=== PATIENT | male | born 1955 | race Caucasian/White ===

== ENCOUNTER 2016-12-01 14:37 | Inpatient (IN) | payer SELFPAY ==
[2016-12-01] VITALS (9 sets, daily range): BP systolic 101–108; BP diastolic 62–72; PULSE 97–112; RESP 20–24; TEMP 97.8–98.2; O2SAT 90–98
[~2016-12-01] VITALS: Ht 182.9 cm; Wt 71.0 kg
[~2016-12-01 14:37] MED LIST: QUET100 PO; VENL-39 PO; VITA500T49 PO
[2016-12-01] MEDS ORDERED: SERO100T PO (15:21)
[2016-12-01] MEDS ORDERED: VENL75TA PO (15:22)
--- NOTE | 2016-12-01 15:29 | PD ---
HPI Chief Complaint: Respiratory Symptoms Time Seen by Provider: 15:29 Travel History International Travel<30 days: No Contact w/Intl Traveler<30days: No Traveled to known affect area: No History of Present Illness HPI 61-year-old male with history of COPD presents to the emergency department for worsening shortness of breath over the last 2 weeks. Patient states it has been significantly worse over the last 3 days. He has had cough and chest congestion with some production more than usual but states that his cough is typically productive. Continues to smoke half a pack of tobacco cigarettes daily. Denies chest pain. States there is a tightness with taking deep breaths. Patient denies fever or chills. No recent illnesses. No other symptoms to report. Patient is not oxygen dependent at home. PFSH Past Medical History Anxiety: Yes Depression: Yes Heart Rhythm Problems: No Cancer: Yes (skin cancer) Cardiovascular Problems: Yes (Chest Pain) High Cholesterol: No Chest Pain: Yes Congestive Heart Failure: No COPD: Yes Endocrine: No Genitourinary: No Immune Disorder: No Musculoskeletal: Yes (back pain) Neurologic: No Psychiatric: Yes Reproductive: No Respiratory: Yes Social History Alcohol Use: Yes (DAILY) Tobacco Use: Yes (/ PPD) Substance Use: No Allergies-Medications (Allergen,Severity, Reaction): Coded Allergies: No Known Allergies (Unverified , 12/01/16) Reported Meds & Prescriptions Reported Meds & Active Scripts Active Reported Effexor (Venlafaxine HCl) 75 Mg Tab 150 Mg PO DAILY Seroquel (Quetiapine Fumarate) 100 Mg Tab 100 Mg PO HS Review of Systems Except as stated in HPI: all other systems reviewed are Neg Physical Exam Narrative GENERAL: Thin male patient, lying in bed, in no acute distress SKIN: Warm and dry. HEAD: Atraumatic. Normocephalic. EYES: Pupils equal and round. No scleral icterus. No injection or drainage. ENT: No nasal bleeding or discharge. Mucous membranes pink and moist. NECK: Trachea midline. No JVD. CARDIOVASCULAR: Tachycardic rate and rhythm. No murmur appreciated. RESPIRATORY: No accessory muscle use. Diminished, to auscultation. Breath sounds equal bilaterally. GASTROINTESTINAL: Abdomen soft, non-tender, nondistended. Hepatic and splenic margins not palpable. MUSCULOSKELETAL: No obvious deformities. No clubbing. No cyanosis. No edema. NEUROLOGICAL: Awake and alert. No obvious cranial nerve deficits. Motor grossly within normal limits. Normal speech. PSYCHIATRIC: Appropriate mood and affect; insight and judgment normal. Data Data Last Documented VS Vital Signs Date Time Temp Pulse Resp B/P Pulse Ox O2 Delivery O2 Flow Rate FiO2 12/01/16 16:24 102 20 104/72 97 Nasal Cannula 4.00 12/01/16 15:20 98.2 Orders Complete Blood Count With Diff (12/01/16 15:34) Comprehensive Metabolic Panel (12/01/16 15:34) B-Type Natriuretic Peptide (12/01/16 15:34) Act Partial Throm Time (Ptt) (12/01/16 15:34) Prothrombin Time / Inr (Pt) (12/01/16 15:34) Ckmb (Isoenzyme) Profile (12/01/16 15:34) Troponin I (12/01/16 15:34) Urinalysis - C+S If Indicated (12/01/16 15:34) Influenzae A/B Antigen (12/01/16 15:34) Iv Access Insert/Monitor (12/01/16 15:34) Electrocardiogram (12/01/16 15:34) Ecg Monitoring (12/01/16 15:34) Oximetry (12/01/16 15:34) Oxygen Administration (12/01/16 15:34) Chest, Single Ap (12/01/16 15:34) Sodium Chloride 0.9% Flush (Ns Flush) (12/01/16 15:45) Methylprednisolone So Succ Inj (Solumedr (12/01/16 15:45) Albuterol-Ipratropium Neb (Duoneb Neb) (12/01/16 15:45) Sodium Chlor 0.9% 1000 Ml Inj (Ns 1000 M (12/01/16 16:45) Ceftriaxone Inj (Rocephin Inj) (12/01/16 16:45) Azithromycin Inj (Zithromax Inj) (12/01/16 16:45) Labs Laboratory Tests Test 12/01/16 15:45 White Blood Count 15.0 TH/MM3 Red Blood Count 4.18 MIL/MM3 Hemoglobin 12.2 GM/DL Hematocrit 37.6 % Mean Corpuscular Volume 89.8 FL Mean Corpuscular Hemoglobin 29.1 PG Mean Corpuscular Hemoglobin 32.4 % Concent Red Cell Distribution Width 15.2 % Platelet Count 294 TH/MM3 Mean Platelet Volume 7.5 FL Neutrophils (%) (Auto) 87.0 % Lymphocytes (%) (Auto) 9.1 % Monocytes (%) (Auto) 3.4 % Eosinophils (%) (Auto) 0.3 % Basophils (%) (Auto) 0.2 % Neutrophils # (Auto) 13.1 TH/MM3 Lymphocytes # (Auto) 1.4 TH/MM3 Monocytes # (Auto) 0.5 TH/MM3 Eosinophils # (Auto) 0.0 TH/MM3 Basophils # (Auto) 0.0 TH/MM3 CBC Comment DIFF FINAL Differential Comment Prothrombin Time 11.2 SEC Prothromb Time International 1.0 RATIO Ratio Activated Partial 29.9 SEC Thromboplast Time Sodium Level 135 MEQ/L Potassium Level 3.5 MEQ/L Chloride Level 103 MEQ/L Carbon Dioxide Level 22.1 MEQ/L Anion Gap 10 MEQ/L Blood Urea Nitrogen 19 MG/DL Creatinine 1.41 MG/DL Estimat Glomerular Filtration 51 ML/MIN Rate Random Glucose 132 MG/DL Calcium Level 8.4 MG/DL Total Bilirubin 0.5 MG/DL Aspartate Amino Transf 33 U/L (AST/SGOT) Alanine Aminotransferase 49 U/L (ALT/SGPT) Alkaline Phosphatase 90 U/L Total Creatine Kinase 56 U/L Troponin I 0.07 NG/ML B-Type Natriuretic Peptide 175 PG/ML Total Protein 6.6 GM/DL Albumin 2.4 GM/DL MDM Medical Decision Making Medical Screen Exam Complete: Yes Emergency Medical Condition: Yes Medical Record Reviewed: Yes Differential Diagnosis COPD exacerbation versus pneumonia versus influenza versus ACS versus CHF Narrative Course 61-year-old male presents to emergency department for evaluation of worsening shortness of breath. Patient appears without distress. He is tachycardic with diminished breath sounds. EKG is without ST elevation or depression. There are frequent PVCs. Reviewed by my attending physician. CBC is with leukocytosis of 15 and a neutrophilia of 13.1. CMP is with elevated creatinine 1.49, breathing 18, GFR 51. Troponin 0.07. BNP is 175. Chest x-ray is with hyperinflation. There is minimal patchy airspace disease in the mid left lung. I discussed the patient my attending physician Dr. Anne who recommends admission for pneumonia, COPD exacerbation. Patient does meet sepsis criteria. He is given IV fluids, Rocephin, azithromycin IV here in the emergency department. Patient was also given 2 nebs 3 and Solu-Medrol IV. A call has been placed to resident physician radioisotope production operator for admission. Sepsis Criteria SIRS Criteria (2 or more): Heart rate over 90, WBC > 54497, < 4000 or > 10% bands Sepsis Criteria (SIRS+source): Infect source susp/known Diagnosis Primary Impression: Pneumonia Qualified Code: J18.1 - Pneumonia of left lower lobe due to infectious organism Additional Impressions: COPD exacerbation Sepsis Qualified Code: A41.9 - Sepsis, due to unspecified organism Admitting Information Admitting Physician Requests: Admit Condition: Stable AiramKerrie PUENTES Dec 01, 2016 15:29
[2016-12-01] MEDS ORDERED: methylPREDNISolone SOD SUCC 125 MG/2 ML VIAL IVP ONE (15:45)
[2016-12-01] MEDS ORDERED: SODIUM CHLORIDE 0.9% FLUSH 10 ML FLUSH IVF PRN (15:45)
[2016-12-01] MEDS: RESP: ALBUTEROL 2.5 MG/IPRATROPIUM 0.5 MG NEB (SCH) INH ×3 (15:56→20:13)
[2016-12-01 16:13] LABS: AUTOMATED NEUTROPHIL # 13.1 TH/MM3 (1.8-7.7); BASOPHIL % 0.2 % (0.0-2.0); EOSINOPHIL % 0.3 % (0.0-4.0); HEMATOCRIT 37.6 % (39.0-51.0); HEMO FLAGS DIFF FINAL; LYMPH % 9.1 % (9.0-44.0); LYMPHOCYTE # 1.4 TH/MM3 (1.0-4.8); MEAN CELL VOLUME 89.8 FL (80.0-100.0); MEAN CORPUSCULAR HEMOGLOBIN 29.1 PG (27.0-34.0); MEAN CORPUSCULAR HGB CONC 32.4 % (32.0-36.0); MONO % 3.4 % (0.0-8.0); PLATELET COUNT 294 TH/MM3 (150-450); RED BLOOD COUNT 4.18 MIL/MM3 (4.50-5.90); RED CELL DISTRIBUTION WIDTH 15.2 % (11.6-17.2)
[2016-12-01 16:25] LABS: APTT (PATIENT) 29.9 SEC (24.3-30.1); PROTHROMBIN TIME - PATIENT 11.2 SEC (9.8-11.6)
--- NOTE | 2016-12-01 16:26 | RADRPT ---
EXAM DATE/TIME: 12/01/2016 15:51 [facility] COMPARISON: CHEST SINGLE AP, May 05, 2016, 16:58. INDICATIONS : Short of breath. MEDICAL HISTORY : Chronic obstructive pulmonary disease. SURGICAL HISTORY : None. ENCOUNTER: Initial ACUITY: 1 day PAIN SCORE: 7/10 LOCATION: Bilateral chest FINDINGS: Lungs are hyperinflated. Patchy air space disease is seen in the left mid lung. The right lung is c lear. Heart and pulmonary vascularity is normal. CONCLUSION: 1. Hyperinflation. 2. Minimal patchy air space disease in the left mid lung. Angel Gomez MD FACR on December 01, 2016 at 16:23 Board Certified Radiologist. This report was verified electronically.
[2016-12-01 16:31] LABS: ALT (GPT) 49 U/L (12-78); ANION GAP 10 MEQ/L (5-15); AST (GOT) 33 U/L (15-37); BICARBONATE 22.1 MEQ/L (21.0-32.0); BLOOD UREA NITROGEN 19 MG/DL (7-18); CHLORIDE 103 MEQ/L (98-107); GLOMERULAR FILTRATION RATE 51 ML/MIN (>89); POTASSIUM 3.5 MEQ/L (3.5-5.1); SODIUM (NA) 135 MEQ/L (136-145)
[2016-12-01 16:35] LABS: ALKALINE PHOSPHATASE 90 U/L (45-117); TOTAL BILIRUBIN ADULT 0.5 MG/DL (0.2-1.0)
[2016-12-01 16:37] LABS: CREATINE KINASE 56 U/L (39-308)
[2016-12-01] MEDS ORDERED: AZITHROMYCIN INJ 500 MG in SODIUM CHLOR 0.9% 250 ML INJ 250 ML IV ONE (16:45)
[2016-12-01] MEDS ORDERED: cefTRIAXone INJ 1,000 MG in SODIUM CHLORIDE 0.9% INJ 100 ML IV ONE (16:45)
[2016-12-01] MEDS ORDERED: SODIUM CHLOR 0.9% 1000 ML INJ 1,000 ML IV ONE (16:45)
--- NOTE | 2016-12-01 17:39 | HHI.HP ---
HPI Service Family Medicine Primary Care Physician No Primary Care Physician Admission Diagnosis Diagnoses: International Travel<30 Days: No Contact w/Intl Traveler<30days: No Known Affected Area: No History of Present Illness HPI: "I couldn't catch my breath" HPI: SOB started 1-2 weeks ago and reports being on and off. Today he went to walk his dog, walked a couple of block and then had difficulty catching his breath. He felt like he "could not suck up any oxygen". After 5 minutes of rest his SOB improved. At home he is not doing anything for his symptoms. He reports a hx of COPD. SOB was worse over past 4 days. He denies a new cough. He reports chest pain when he takes a deep breath at the center of his chest. No URI symptoms. ROS: Pain in lower back, flank Right side. "Warm feeling" in his back. PMHx: blood clots (Dong Torres MD R2) Review of Systems Constitutional: COMPLAINS OF: Fever, Change in appetite, DENIES: Chills Eyes: COMPLAINS OF: Blurred vision, Photosensitivity, DENIES: Diplopia Ears, nose, mouth, throat: DENIES: Tinnitus, Throat pain, Running Nose, Epistaxis Cardiovascular: COMPLAINS OF: Dyspnea on Exertion, DENIES: Chest pain, Lower Extremity Edema, Orthopnea Gastrointestinal: COMPLAINS OF: Abdominal pain, Diarrhea, DENIES: Nausea, Vomiting Musculoskeletal: COMPLAINS OF: Back pain Neurologic: COMPLAINS OF: Headache (Dong Torres MD R2) Past Family Social History Past Medical History PE in 2013 Anxiety / Panic Disorder Denies OR CVA DM SEIZURE C diff Past Surgical History Never (Dong Torres MD R2) Allergies: Coded Allergies: No Known Allergies (Unverified , 12/01/16) Family History Mother - healthy Father - 80 y/o heart defibrillator, CAD, knee replacements BL Siblings - 2 brothers: healthy, 1 sister - healthy Social History Tob - since 19 y/o - 1/2 ppd, previously 1 PPD EtOH - remote IVDU - denies [employer] [place] - lost job, [facility] (Dong Torres MD R2) Physical Exam Vital Signs Vital Signs Date Time Temp Pulse Resp B/P Pulse Ox O2 Delivery O2 Flow Rate FiO2 12/01/16 16:24 102 20 104/72 97 Nasal Cannula 4.00 12/01/16 15:55 92 Nasal Cannula 4.00 12/01/16 15:25 24 92 Nasal Cannula 3 12/01/16 15:25 112 24 91 Nasal Cannula 3 12/01/16 15:25 92 Nasal Cannula 3 12/01/16 15:20 98.2 112 24 106/70 90 Physical Exam GENERAL: Breathing comfortably. NAD SKIN: No rashes, ecchymoses or lesions. Cool and dry. HEAD: Atraumatic. EYES: Pupils equal round and reactive. ENT: Nose without bleeding, purulent drainage or septal hematoma. No LA, hyperpigmented macule on left bridge of nose. NECK: Trachea midline. No JVD or lymphadenopathy. CARDIOVASCULAR: Regular rate and rhythm without murmurs, gallops, or rubs.Faint heart Sounds. RESPIRATORY: Crackles at right lung base, exp. wheezes throughout, good aeration. GASTROINTESTINAL: Abdomen soft, non-tender, nondistended. MUSCULOSKELETAL: NEGATIVE HOMANS SIGN. NEUROLOGICAL: Awake and alert. Cranial nerves II through XII intact. Motor and sensory grossly within normal limits. Five out of 5 muscle strength in all muscle groups. Normal speech. Laboratory Laboratory Tests Test 12/01/16 15:45 White Blood Count 15.0 Red Blood Count 4.18 Hemoglobin 12.2 Hematocrit 37.6 Mean Corpuscular Volume 89.8 Mean Corpuscular Hemoglobin 29.1 Mean Corpuscular Hemoglobin 32.4 Concent Red Cell Distribution Width 15.2 Platelet Count 294 Mean Platelet Volume 7.5 Neutrophils (%) (Auto) 87.0 Lymphocytes (%) (Auto) 9.1 Monocytes (%) (Auto) 3.4 Eosinophils (%) (Auto) 0.3 Basophils (%) (Auto) 0.2 Neutrophils # (Auto) 13.1 Lymphocytes # (Auto) 1.4 Monocytes # (Auto) 0.5 Eosinophils # (Auto) 0.0 Basophils # (Auto) 0.0 CBC Comment DIFF FINAL Differential Comment Prothrombin Time 11.2 Prothromb Time International 1.0 Ratio Activated Partial 29.9 Thromboplast Time Sodium Level 135 Potassium Level 3.5 Chloride Level 103 Carbon Dioxide Level 22.1 Anion Gap 10 Blood Urea Nitrogen 19 Creatinine 1.41 Estimat Glomerular Filtration 51 Rate Random Glucose 132 Calcium Level 8.4 Total Bilirubin 0.5 Aspartate Amino Transf 33 (AST/SGOT) Alanine Aminotransferase 49 (ALT/SGPT) Alkaline Phosphatase 90 Total Creatine Kinase 56 Troponin I 0.07 B-Type Natriuretic Peptide 175 Total Protein 6.6 Albumin 2.4 Date/Time Procedure Status Source Growth 12/01/16 15:45 Influenza Types A,B Antigen (LISS) - Final Complete Nasal Washing NEGATIVE FOR FLU A AND B ANTIGEN.... (Dong Torres MD R2) Result Diagram: 12/01/16 1545 12/01/16 1545 Imaging Last 72 hours Impressions Chest X-Ray 12/01/16 1534 Signed Impressions: Service Date/Time: Tuesday, December 01, 2016 15:51 - CONCLUSION: 1. Hyperinflation. 2. Minimal patchy air space disease in the left mid lung. Angel Gomez MD FACR (Dong Torres MD R2) Septic Shock Reassessment Heart: Regular rate and rhythm Lungs: Course, Crackles Skin: Warm Peripheral Pulses: Weak Right Radial Weak Left Radial Capillary Refill: <2 seconds (Dong Torres MD R2) Assessment and Plan Assessment and Plan Mr. Daniel is a 61 y/o occasion male with a past medical history of pulmonary embolism in 2013, anxiety/depression, presenting to the [place] emergency department with acute onset shortness of breath. (HR 112, WBC 15,000, and RR 24 ); meeting sepsis criteria. He was admitted initially with the diagnosis of acute exacerbation of chronic obstructive pulmonary disease, versus a community- acquired pneumonia. Code Status Full Code. (Dong Torrse MD R2) Attending Attestation THIS CASE WAS DISCUSSED WITH THE RESIDENT PHYSICIANS. I HAVE REVIEWED THE RECORD AND AGREE WITH THE ABOVE NOTE AND PLAN OF CARE WAS DISCUSSED. I HAVE AUTHORIZED THE ORDER FOR ADMISSION TO AN IN-PATIENT STATUS. (Mahesh Johnson MD) Problem List: (1) Chest pain Status: Acute Plan: Likely related to CAP, vs COPD vs PE (given pleuritic nature of chest pain and heart strain as evidence by elevated troponin and BNP). -Duonebs q 4 hours -Duonebs q 2 hr prn SOB -Ceftriaxone and Azithromycin for CAP (12/01/16 --) -Methylprednisolone 40 mg IV q 12 -Incentive spirometry, COPD education -Trend TROP and EKGs; EKG showed no S1,Q3, S3 pattern on addmision: Sinus tachycardia with borderline right axis deviation. Trop = 0.07 H -Check a D-dimer, Wells criteria PE prob 16.5% (2) Pneumonia Status: Acute Plan: CXR showed: hyperinflation, Minimal patchy airspace disease in left lung. Treat with Ceftriaxone and Azithromycin as above Check Lactic Acid IVF with 125 ml/hr NS Monitor CBC in AM Steroids as above (3) COPD exacerbation Status: Acute Plan: Some wheezing on exam, heavy Tob history of 1/2 - 1 ppd since age 19. -Steroids as above -Breathing tx as above -ABX as above -Incentive spirometry -Guaifen-DM 10 ml q 4 hr PRN cough -Smoking cessation counseling -COPD educator -Continuous pulse ox w/ supp O2 > 90% (4) Sepsis Status: Acute Plan: Meeting sepsis criteria on exam: Leukocytosis of 15k, tachycardia to 112 , and RR of 24 with source of infection being pulmonary. -Lactic acid -ABX at targeted organisms (lower resp pathogens) -Blood cultures x 2 -U/A +/- culture (5) Major depressive disorder, recurrent, severe with psychotic features Status: Acute Plan: Continue home meds - Effexor 75 mg daily and seroquel 100 mg at bedtime. (6) Alcohol use disorder Status: Acute Plan: [facility] protocol IV rally pack (thiamine/B1, mv) (7) FEN Status: Acute Plan: Fluids: 125 ml/hr ns Electrolytes: Sodium low of 135, Ca+ 8.4 DVT: Lovenox [address] Johnson (Dong Torres MD R2) Physician Certification 2 Midnight Certification Type: Admission for Inpatient Services Order for Inpatient Services The services are ordered in accordance with Medicare regulations or non- Medicare payer requirements, as applicable. In the case of services not specified as inpatient-only, they are appropriately provided as inpatient services in accordance with the 2-midnight benchmark. Estimated LOS (days): 2 2 days is the estimated time the patient will need to remain in the hospital, assuming treatment plan goals are met and no additional complications. Post-Hospital Plan: Home (Dong Torres MD R2) Problem Qualifiers (1) Pneumonia: Qualified Code: J18.1 - Pneumonia of left lower lobe due to infectious organism (2) Sepsis: Qualified Code: A41.9 - Sepsis, due to unspecified organism Dong Torres MD R2 Dec 01, 2016 17:39 Mahesh Johnson MD Dec 02, 2016 11:53
[2016-12-01] MEDS ORDERED: RESP: ALBUTEROL 2.5 MG/IPRATROPIUM 0.5 MG NEB (PRN) INH (18:00)
[2016-12-01] MEDS ORDERED: ONDANSETRON HCL 4 MG/2 ML VIAL IVP PRN (18:00)
[2016-12-01] MEDS ORDERED: NALOXONE HCL 0.4 MG/ML AMP IV PRN (18:00)
[2016-12-01] MEDS ORDERED: guaiFENesin/DEXTROMETHORPHAN 200 MG/20 MG/10 ML CUP PO PRN (18:00)
[2016-12-01] MEDS ORDERED: TEMAZEPAM 15 MG CAP PO PRN (18:00)
[2016-12-01] MEDS ORDERED: SODIUM CHLORIDE 0.9% FLUSH 10 ML FLUSH IV FLUSH PRN (18:00)
[2016-12-01] MEDS: SODIUM CHLOR 0.9% 1000 ML INJ 1,000 ML IV SCH (18:34)
[2016-12-01] MEDS ORDERED: ENOXAPARIN SODIUM 30 MG/0.3 ML SYRINGE SQ SCH (20:00)
[2016-12-01] MEDS ORDERED: VANCOMYCIN INJ 1,000 MG in SODIUM CHLOR 0.9% 250 ML INJ 250 ML IV SCH (20:15)
[2016-12-01] MEDS ORDERED: Vancomycin Consult Pharmacy 1 EA OTHER SCH (20:15)
[2016-12-01] MEDS: QUEtiapine FUMARATE 100 MG TAB PO SCH (20:21)
[2016-12-01] MEDS: methylPREDNISolone SOD SUCC 40 MG/1 ML VIAL IV SCH (20:21)
[2016-12-01] MEDS: PIPERACIL-TAZO 3.375 GM PREMIX 50 ML IV SCH (20:26)
[2016-12-01] MEDS ORDERED: IOHEXOL 350 MG/ML 10 ML VIAL (for RAD DIAG) IV ONE (21:02)
--- NOTE | 2016-12-01 21:15 | RADRPT ---
EXAM DATE/TIME: 12/01/2016 20:53 [facility] COMPARISON: CT PULMONARY ANGIOGRAM, May 05, 2016, 18:27. INDICATIONS : Chest pain with shortness of breath for 2 days; evaluate for pulmonary embolism. IV CONTRAST: 74 cc Omnipaque 350 (iohexol) IV RADIATION DOSE: 9.30 CTDIvol (mGy) MEDICAL HISTORY : Cardiovascular disease. Carcinoma, not otherwise specified. Tuberculosis; Pneumonia. SURGICAL HISTORY : None. ENCOUNTER: Initial ACUITY: 2 days PAIN SCALE: 3/10 LOCATION: chest TECHNIQUE: Volumetric scanning of the chest was performed using a pulmonary embolism protocol MIP images were re constructed. Using automated exposure control and adjustment of the mA and/or kV according to patien t size, radiation dose was kept as low as reasonably achievable to obtain optimal diagnostic quality images. FINDINGS: Extensive pulmonary emboli are noted bilaterally involving all branches of the pulmonary arteries. Th ere are saddle emboli bilaterally within the distal main pulmonary arteries. Moderate emphysematous c hanges are noted bilaterally. Patchy consolidations are noted within the left upper lobe laterally an d the right lower lobe posteriorly consistent with atelectasis, infiltrate, scarring or small pulmona ry infarcts. No significant lymphadenopathy is noted. No pleural effusion is noted. CONCLUSION: 1. Extensive pulmonary emboli are noted bilaterally involving all branches of the pulmonary arteries. There are saddle emboli bilaterally within the distal main pulmonary arteries. 2. Moderate emphysematous changes bilaterally. 3. Patchy consolidations are noted within the left upper lobe laterally and the right lower lobe post eriorly consistent with atelectasis, infiltrate, scarring or small pulmonary infarcts. Philip Edgar MD on December 01, 2016 at 21:09 Board Certified Radiologist. This report was verified electronically.
[2016-12-01 21:22] LABS: LACTIC ACID GHOST NOT REPORTABLE
[2016-12-01] MEDS ORDERED: VANCOMYCIN INJ 1,350 MG in SODIUM CHLORID 0.9% 500 ML INJ 500 ML IV ONE (22:00)
[2016-12-01] MEDS ORDERED: HEPARIN-D5W INJ 250 ML IV SCH (22:15)
[2016-12-02] VITALS (15 sets, daily range): BP systolic 96–114; BP diastolic 62–67; PULSE 67–98; RESP 16–27; TEMP 97.8–98.9; O2SAT 91–99
[2016-12-02] MEDS ORDERED: TERBUTALINE INJ 1 MG/ML AMP SQ PRN (00:30)
[2016-12-02] MEDS ORDERED: NOREPINEPHRINE-DEXTROSE DRIP 250 ML IV SCH (00:30)
[2016-12-02 00:45] LABS: BLOOD, URINE SMALL (NEG); COMMENT (UR) CULT NOT INDICATED; CULTURE IF INDICATED CULT NOT INDICATED; GLUCOSE,URINE 1000 mg/dL (NEG); KETONE, URINE 10 mg/dL (NEG); MUCUS URINE FEW /lpf (OCC); NITRITE,URINE NEG (NEG); URINE COLOR YELLOW (YELLW/STRAW)
[2016-12-02] MEDS: SODIUM CHLOR 0.9% 1000 ML INJ 1,000 ML IV SCH (02:18)
[2016-12-02] MEDS: PIPERACIL-TAZO 3.375 GM PREMIX 50 ML IV SCH ×4 (02:56→19:41)
[2016-12-02] MEDS ORDERED: HEPARIN SODIUM - IV 10,000 UNITS/10 ML VIAL IV PRN ×2 (04:15)
[2016-12-02] MEDS ORDERED: ALTEPLASE INJ 50 MG in WATER STERILE FOR INJ 100 ML IV ONE (05:15)
--- NOTE | 2016-12-02 05:25 | PD.CONS ---
[facility] Service Critical Care Medicine Consult Requested By Primary Care Physician No Primary Care Physician History of Present Illness 61-year-old male with past history of COPD and emphysema, and history of what appears to be in unprovoked PE in 2013. He states that about 2 weeks ago he began feeling short of breath but he became much worse about 4 days ago. He also developed some right sided pleuritic chest pain about 4-5 days ago. He denies fever or hemoptysis. He was tachycardic 110s and hypoxic requiring 4 L NC. He was admitted to [facility] medicine service. CTPA was obtained and demonstrated bilateral pulmonary emboli including emboli in the distal bilateral main pulmonary arteries. Medical care medicine consult was obtained due to concern patient may be a candidate for fibrinolytic therapy. He does have troponin of 0.07 and BNP of 175. Blood pressure has been relatively stable with a major of 96/65. He states his cough is occasionally productive of white phlegm. He states he has a prior history of PE that was diagnosed 2 years ago. He was treated for this at [facility]. It is unclear if he underwent hypercoagulable workup as he says he did not follow-up with anyone after he was discharged from the hospital due to lack of insurance. He states he was on anticoagulation for about 2 months and when the prescriptions ran out that he was provided in the hospital that he stopped anticoagulation. He is unclear what anticoagulant medication he was on. He denies prior known history of malignancy, however he does not seek medical care due to his lack of insurance. Has not had colonoscopy. He denies recent travel. Denies family history of venous thromboembolic disease. Denies recent trauma, surgery, extremity fractures. He denies history of significant bleeding, denies GI bleeding, denies prior history of intracerebral hemorrhage or known intracerebral/spinal mass lesion or vascular anomaly, prior surgery, prior stroke, LP/epidural. Obtained stat Echo and discussed with Dr. Chino Marie who states there is severe RV dysfunction. Discussed risk/benefits of thrombolytic for submassive PE and patient accepts risks. Past Family Social History Allergies: Coded Allergies: No Known Allergies (Unverified , 12/01/16) Past Medical History Insomnia Panic attacks Tobacco abuse Pulmonary embolism about 2 years ago Past Surgical History No prior surgical history. Never had a colonoscopy Reported Medications Seroquel 100 g by mouth daily Effexor 150 mg by mouth daily Family History He denies family history of veno thromboembolic disease He says he had 2 grandparents that had lung cancer, one paternal and one maternal. Social History He smokes a half pack of cigarettes per day since he was age 14. Denies use of alcohol or illicit drugs He is currently unemployed for the last 2 years as he states he lost his job Physical Exam Vital Signs Vital Signs Date Time Temp Pulse Resp B/P Pulse Ox O2 Delivery O2 Flow Rate FiO2 12/02/16 04:00 98.5 76 20 114/63 92 96/65 12/02/16 04:00 76 12/02/16 02:00 77 12/02/16 00:30 95 12/02/16 00:30 91 Nasal Cannula 4.00 12/02/16 00:30 98.3 98 19 114/63 91 12/01/16 21:20 97.8 97 20 101/62 91 12/01/16 20:26 102 20 101/65 98 Nasal Cannula 4 12/01/16 20:15 94 Nasal Cannula 2.00 12/01/16 19:59 102 20 108/69 95 Nasal Cannula 4.00 12/01/16 17:54 98.0 98 20 105/66 98 Nasal Cannula 4.00 12/01/16 16:24 102 20 104/72 97 Nasal Cannula 4.00 12/01/16 15:55 92 Nasal Cannula 4.00 12/01/16 15:25 24 92 Nasal Cannula 3 12/01/16 15:25 112 24 91 Nasal Cannula 3 12/01/16 15:25 92 Nasal Cannula 3 12/01/16 15:20 98.2 112 24 106/70 90 Physical Exam Pulse 72 sats 90% on 3 L blood pressure 96/65 with mean arterial pressure of 76 GENERAL: Well-nourished, well-developed patient who is sitting up in ISC bed, alert and coversant. SKIN: Warm and dry, well perfused. Pearly Skin lesion on right nose, non- pigmented HEAD: Atraumatic. Normocephalic. EYES: Pupils equal and round 2 mm reactive. No scleral icterus. No injection or drainage. ENT: No nasal bleeding or discharge. Mucous membranes pink and moist. NECK: Trachea midline. ++JVD CARDIOVASCULAR: Regular rate and rhythm, sinus rhythm on monitor with rate in the 70s to 90s. No murmurs rubs or gallops. RESPIRATORY: Tachypneic, no accessory muscle use, diminished right base. No wheezes Rales or rhonchi is currently. GASTROINTESTINAL: Abdomen soft, non-tender, nondistended. Bowel sounds present MUSCULOSKELETAL: Extremities without clubbing, cyanosis, or edema. No obvious deformities. NEUROLOGICAL: Awake and alert. No obvious cranial nerve deficits. Motor grossly within normal limits. Five out of 5 muscle strength in the arms and legs. Normal speech. Laboratory Laboratory Tests Test 12/01/16 12/01/16 12/01/16 12/01/16 15:45 18:40 18:45 20:16 White Blood Count 15.0 Red Blood Count 4.18 Hemoglobin 12.2 Hematocrit 37.6 Mean Corpuscular Volume 89.8 Mean Corpuscular Hemoglobin 29.1 Mean Corpuscular Hemoglobin 32.4 Concent Red Cell Distribution Width 15.2 Platelet Count 294 Mean Platelet Volume 7.5 Neutrophils (%) (Auto) 87.0 Lymphocytes (%) (Auto) 9.1 Monocytes (%) (Auto) 3.4 Eosinophils (%) (Auto) 0.3 Basophils (%) (Auto) 0.2 Neutrophils # (Auto) 13.1 Lymphocytes # (Auto) 1.4 Monocytes # (Auto) 0.5 Eosinophils # (Auto) 0.0 Basophils # (Auto) 0.0 CBC Comment DIFF FINAL Differential Comment Prothrombin Time 11.2 Prothromb Time International 1.0 Ratio Activated Partial 29.9 Thromboplast Time Sodium Level 135 Potassium Level 3.5 Chloride Level 103 Carbon Dioxide Level 22.1 Anion Gap 10 Blood Urea Nitrogen 19 Creatinine 1.41 Estimat Glomerular Filtration 51 Rate Random Glucose 132 Calcium Level 8.4 Total Bilirubin 0.5 Aspartate Amino Transf 33 (AST/SGOT) Alanine Aminotransferase 49 (ALT/SGPT) Alkaline Phosphatase 90 Total Creatine Kinase 56 Troponin I 0.07 0.06 B-Type Natriuretic Peptide 175 Total Protein 6.6 Albumin 2.4 D-Dimer Quantitative (PE/DVT) 5.68 Lactic Acid Level 4.4 Test 12/01/16 12/02/16 12/02/16 23:58 00:29 02:32 Prothrombin Time 11.0 Prothromb Time International 1.0 Ratio Activated Partial 35.0 Thromboplast Time Lactic Acid Level 4.0 Urine Color YELLOW Urine Turbidity CLEAR Urine pH 6.0 Urine Specific [place] 1.043 Urine Protein 100 Urine Glucose (UA) 1000 Urine Ketones 10 Urine Occult Blood SMALL Urine Nitrite NEG Urine Bilirubin NEG Urine Urobilinogen LESS THAN 2.0 Urine Leukocyte Esterase NEG Urine RBC 2 Urine WBC 3 Urine Mucus FEW Microscopic Urinalysis Comment CULT NOT INDICATED Troponin I 0.04 Date/Time Procedure Status Source Growth 12/01/16 20:17 Aerobic Blood Culture Received Blood Peripheral Pending 12/01/16 20:17 Anaerobic Blood Culture Received Blood Peripheral Pending 12/01/16 15:45 Influenza Types A,B Antigen (LISS) - Final Complete Nasal Washing NEGATIVE FOR FLU A AND B ANTIGEN.... Result Diagram: 12/01/16 1545 12/01/16 1545 Assessment and Plan Assessment and Plan NEURO: Anxiety Panic attacks Continue Effexor 150 mg by mouth daily Continue Seroquel 100 mg by mouth daily at bedtime Lortab as needed for pain CT brain, negative. RESP: Submassive bilateral pulmonary emboli COPD/emphysema Patient has bilateral central pulmonary emboli, elevated troponin, elevated BNP and stat 2-D echo demonstrating severe RV dysfunction per my discussion with Dr. Chino Marie overnight (formal dictation pending). Discussed with patients risk/benefits/alternatives of fibrinolysis and patient accepts risk of fibrinolytic and wishes to proceed. There is no apparent contraindication per discussion with patient. Discussed risk of hemorrhage, including risk of intracerebral hemorrhage or potential need for transfusion or . However, in this patient who already has severe emphysema and would not tolerate contribution of thromboembolic pulmonary hypertension, benefit of alteplase appears to outweigh risks. Continue heparin drip fixed dose 1000 units/hr and give alteplase 10 mg IV and 40 mg IV over 2 hours. Solumedrol 40 mg IV every 12 hours per primary team. Duoneb q6 hours and prn. Robitussin. CV: Lactic acidemia KVO IVF. GI: Regular diet FEN/RENAL: Acute kidney injury Insert Romero prior to TPA. Monitor intake and output. Monitor electrolytes and replace as indicated. ID: Community acquired pneumonia On Zosyn 3.375 g IV every 6 hours per primary team due to community-acquired pneumonia with severe structural lung disease. HEME: Hypercoagulable workup sent. Type and Cross 2 units PRBC. ENDO: Mild hyperglycemia. Insulin sliding scale if needed PROPH: On heparin drip. Protonix 40 mg po daily for stress ulcer prophylaxis. ACCESS: [address] additional large bore peripheral IV Discussed with family medicine team, Dr. Johnson. FULL CODE Level 3 consult note Pily Blackwell MD Dec 02, 2016 05:25
[2016-12-02] MEDS ORDERED: HEPARIN-D5W INJ 250 ML IV SCH (05:30)
[2016-12-02] MEDS ORDERED: ALTEPLASE INJ 50 MG in WATER STERILE FOR INJ 50 ML IV ONE (05:30)
[2016-12-02 05:59] LABS: AUTOMATED NEUTROPHIL # 10.9 TH/MM3 (1.8-7.7); BASOPHIL % 0.3 % (0.0-2.0); HEMATOCRIT 32.8 % (39.0-51.0); HEMO FLAGS DIFF FINAL; LYMPH % 8.1 % (9.0-44.0); MEAN CORPUSCULAR HEMOGLOBIN 29.7 PG (27.0-34.0); MEAN CORPUSCULAR HGB CONC 33.4 % (32.0-36.0); NEUT % 86.6 % (16.0-70.0); PLATELET COUNT 317 TH/MM3 (150-450); RED BLOOD COUNT 3.69 MIL/MM3 (4.50-5.90); RED CELL DISTRIBUTION WIDTH 15.2 % (11.6-17.2); WHITE BLOOD COUNT 12.7 TH/MM3 (4.0-11.0)
--- NOTE | 2016-12-02 06:02 | RADRPT ---
EXAM DATE/TIME: 12/02/2016 05:30 [place] COMPARISON: No previous studies available for comparison. INDICATIONS : Clearance for TPA for known pulmonary emoblism. RADIATION DOSE: 37.46 CTDIvol (mGy) MEDICAL HISTORY : Chronic obstructive pulmonary disease. Cardiovascular disease Skin cancer SURGICAL HISTORY : None. ENCOUNTER: Initial ACUITY: 1 day PAIN SCALE: 2/10 LOCATION: chest TECHNIQUE: Multiple contiguous axial images were obtained of the head. Using automated exposure control and adj ustment of the mA and/or kV according to patient size, radiation dose was kept as low as reasonably a chievable to obtain optimal diagnostic quality images. FINDINGS: CEREBRUM: The ventricles are normal for age. No evidence of midline shift, mass lesion, hemorrhage or acute in farction. No extra-axial fluid collections are seen. POSTERIOR FOSSA: The cerebellum and brainstem are intact. The 4th ventricle is midline. The cerebellopontine angle i s unremarkable. EXTRACRANIAL: The visualized portion of the orbits is intact. SKULL: The calvaria is intact. No evidence of skull fracture. CONCLUSION: Normal examination. Martinez Gotti MD on December 02, 2016 at 5:59 Board Certified Radiologist. This report was verified electronically.
[2016-12-02 06:06] LABS: APTT (PATIENT) 46.7 SEC (24.3-30.1)
[2016-12-02 06:17] LABS: ALKALINE PHOSPHATASE 85 U/L (45-117); ALT (GPT) 41 U/L (12-78); ANION GAP 11 MEQ/L (5-15); AST (GOT) 24 U/L (15-37); BICARBONATE 21.5 MEQ/L (21.0-32.0); BLOOD UREA NITROGEN 18 MG/DL (7-18); CHLORIDE 106 MEQ/L (98-107); GLOMERULAR FILTRATION RATE 54 ML/MIN (>89); POTASSIUM 3.7 MEQ/L (3.5-5.1); SODIUM (NA) 138 MEQ/L (136-145); TOTAL BILIRUBIN ADULT 0.3 MG/DL (0.2-1.0)
[2016-12-02] MEDS: RESP: ALBUTEROL 2.5 MG/IPRATROPIUM 0.5 MG NEB (SCH) INH ×4 (06:29→20:08)
[2016-12-02] MEDS: SODIUM CHLORIDE 0.9% FLUSH 10 ML FLUSH IV FLUSH SCH ×3 (09:00→19:42)
[2016-12-02] MEDS: PANTOPRAZOLE SOD 40 MG DELAYED RELEASE TAB PO SCH (10:00)
[2016-12-02] MEDS: methylPREDNISolone SOD SUCC 40 MG/1 ML VIAL IV SCH ×2 (10:06→19:41)
[2016-12-02] MEDS: VENLAFAXINE HCL XR 75 MG CAP PO SCH (10:06)
[2016-12-02 11:49] LABS: APTT (PATIENT) 40.1 SEC (24.3-30.1)
--- NOTE | 2016-12-02 11:52 | HHI.FPPN ---
Subjective Remarks Overnight CT angiogram was performed and showed extensive pulmonary emboli bilaterally involving all branches of the pulmonary arteries with saddle emboli bilaterally within the distal main pulmonary arteries. At this point critical care was consulted and Dr. Blackwell evaluated patient. He was given TPA for thrombolysis as well as started on a heparin drip. When evaluated this morning , he states that he is feeling relatively well and that he is breathing somewhat better. He denies any cough, he denies any chest pain currently, he denies any significant shortness of breath this morning. He also denies any headache or vision changes. In summary this is a 61-year-old male presented to the emergency department with progressive shortness of breath. He states that over the last several days he has had "on and off" shortness of breath that significantly worsened on the day of presentation while walking his dog. He felt like he could not take a deep breath or move air through his lungs. He reports history of COPD and previous pulmonary embolus and therefore came into the emergency department for evaluation of this shortness of breath. He does have a history of a PE in 2013 that was treated in the hospital up in [facility]. He apparently was given an anticoagulant medication but never followed up with a primary doctor or specialist in order to obtain refills and has been off this medication now for several years. He does not have a primary care doctor and is not currently taking medications for his chronic illnesses. He is a heavy smoker and has COPD that is not being treated Past Medical History PE in 2013 Anxiety / Panic Disorder Denies VT CVA DM SEIZURE C diff Past Surgical History Never Allergies: Coded Allergies: No Known Allergies (Unverified , 12/01/16) Family History Mother - healthy Father - 80 y/o heart defibrillator, CAD, knee replacements BL Siblings - 2 brothers: healthy, 1 sister - healthy Social History Tob - since 19 y/o - 1/2 ppd, previously 1 PPD EtOH - remote IVDU - denies [employer] [place] - lost job, rehab [facility] Objective Vitals Vital Signs Date Time Temp Pulse Resp B/P Pulse Ox O2 Delivery O2 Flow Rate FiO2 12/02/16 09:56 99 Nasal Cannula 2.00 12/02/16 07:00 96 Nasal Cannula 4.00 12/02/16 06:30 94 Nasal Cannula 4.00 12/02/16 06:00 96 12/02/16 04:00 98.5 76 20 114/63 92 96/65 12/02/16 04:00 76 12/02/16 02:00 77 12/02/16 00:30 95 12/02/16 00:30 91 Nasal Cannula 4.00 12/02/16 00:30 98.3 98 19 114/63 91 12/01/16 21:20 97.8 97 20 101/62 91 12/01/16 20:26 102 20 101/65 98 Nasal Cannula 4 12/01/16 20:15 94 Nasal Cannula 2.00 12/01/16 19:59 102 20 108/69 95 Nasal Cannula 4.00 12/01/16 17:54 98.0 98 20 105/66 98 Nasal Cannula 4.00 12/01/16 16:24 102 20 104/72 97 Nasal Cannula 4.00 12/01/16 15:55 92 Nasal Cannula 4.00 12/01/16 15:25 24 92 Nasal Cannula 3 12/01/16 15:25 112 24 91 Nasal Cannula 3 12/01/16 15:25 92 Nasal Cannula 3 12/01/16 15:20 98.2 112 24 106/70 90 I/O 12/01/16 12/01/16 12/01/16 12/02/16 12/02/16 12/02/16 07:00 15:00 23:00 07:00 15:00 23:00 Intake Total 1963 ml Output Total 450 ml Balance 1513 ml Intake Oral 420 ml IV Total 1543 ml Output Urine Total 450 ml Result Diagram: 12/02/16 0545 12/02/16 0545 Imaging Last [address] 12/02/16 0000 Signed Impressions: Service Date/Time: November 05:30 - CONCLUSION: Normal examination. Martinez Gotti MD Chest X-Ray 12/01/16 1534 Signed Impressions: Service Date/Time: Thursday, December 01, 2016 15:51 - CONCLUSION: 1. Hyperinflation. 2. Minimal patchy air space disease in the left mid lung. Angel Gomez MD FACR CT Angiography 12/01/16 0000 Signed Impressions: Service Date/Time: Thursday, December 01, 2016 20:53 - CONCLUSION: 1. Extensive pulmonary emboli are noted bilaterally involving all branches of the pulmonary arteries. There are saddle emboli bilaterally within the distal main pulmonary arteries. 2. Moderate emphysematous changes bilaterally. 3. Patchy consolidations are noted within the left upper lobe laterally and the right lower lobe posteriorly consistent with atelectasis, infiltrate, scarring or small pulmonary infarcts. Philip Edgar MD Objective Remarks GENERAL: Lying in bed, Breathing comfortably. NAD SKIN: No rashes, ecchymoses or lesions. Cool and dry. HEAD: Atraumatic. NECK: Trachea midline. No JVD or lymphadenopathy. CARDIOVASCULAR: Regular rate and rhythm without murmurs, gallops, or rubs.Faint heart Sounds. RESPIRATORY: Crackles at right lung base, scattered exp. wheezes throughout, good aeration. GASTROINTESTINAL: Abdomen soft, non-tender, nondistended. MUSCULOSKELETAL: No lower extremity swelling or edema, negative Homans sign NEUROLOGICAL: Awake and alert. Procedures 12/02/16: TPA infused per critical care Heparin drip started A/P Assessment and Plan Mr. Daniel is a 61 y/o occasion male with a past medical history of pulmonary embolism in 2013, anxiety/depression, presenting to the [place] emergency department with acute onset shortness of breath. (HR 112, WBC 15,000, and RR 24 ); meeting sepsis criteria. He was admitted initially with the diagnosis of acute exacerbation of chronic obstructive pulmonary disease, versus a community- acquired pneumonia. Problem List: (1) Pulmonary emboli Status: Acute Plan: CTA performed on 12/02/16 shows large bilateral pulmonary emboli and saddle pulmonary emboli Critical care was consulted and Dr. Blackwell has evaluated patient: - Stat 2-D echocardiogram performed that showed severe RV dysfunction - TPA/alteplase infused per critical care - Heparin drip started Monitor cardiopulmonary status Observe on critical care floor Supportive treatment as below: Solu-Medrol 40 mg IV every 12 hours Duo nebs every 6 hours as needed Robitussin as needed for cough Hyper coag workup has been ordered and obtained Type and cross 2 units packed red blood cells, transfuse as needed Concerned could be for occult malignancy - Blood tumor markers ordered including CEA, CA-19-9, CEA 125 - Consider GI workup once patient more stable including colonoscopy or EGD (2) Pneumonia Status: Acute Plan: CXR showed: hyperinflation, Minimal patchy airspace disease in left lung. Antibiotic treatment as below: - Vancomycin 1 g IV every 24 hours (3/30 ->) - Zosyn 3.375 g IV every 6 hours (12/02 ->) - Continue Solu-Medrol 40 mg IV every 12 hours Antibiotic history includes: Rocephin 1 g IV 1 (12/01) Azithromycin 500 mg IV 1 (12/01) Supportive treatment: - Duonebs q 4 hours - Duonebs q 2 hr prn SOB - Incentive spirometry, COPD education - Supplemental oxygen as needed Blood cultures 2 drawn and pending (3) Chest pain Status: Acute Plan: Multifactorial with bilateral PE and pneumonia 2-D echocardiogram performed showing severe RV dysfunction Troponins were cycled with initial 0.07, subsequent 0.06 and 0.04 - Likely due to cardiac strain from large bilateral PEs Treatment for PE as above (4) COPD exacerbation Status: Acute Plan: Some wheezing on exam, heavy Tob history of 1/2 - 1 ppd since age 19. See treatment for pneumonia Recommend tobacco cessation (5) Major depressive disorder, recurrent, severe with psychotic features Status: Acute Plan: Continue home meds - Effexor 75 mg daily and seroquel 100 mg at bedtime. (6) Alcohol use disorder Status: Acute Plan: CIWA protocol IV rally pack (thiamine/B1, mv) (7) FEN Status: Acute Plan: Fluids: 125 ml/hr ns Electrolytes: Sodium low of 135, Ca+ 8.4 DVT: Lovenox 30 mg sq Problem Qualifiers (1) Pulmonary emboli: Qualified Code: I26.02 - Acute saddle pulmonary embolism with acute cor pulmonale (2) Pneumonia: Qualified Code: J18.1 - Pneumonia of left lower lobe due to infectious organism Mahesh Johnson MD Dec 02, 2016 11:52
--- NOTE | 2016-12-02 12:28 | EC ---
Study Study Date:12/01/2016 STUDY CONCLUSIONS SUMMARY - Left ventricle: The cavity size was normal. Wall thickness was normal. Systolic function was normal. The estimated ejection fraction was in the range of 50% to 55%. Wall motion was normal; there were no regional wall motion abnormalities. - Aortic valve: Valve area: 3.03cm^2(VTI). Valve area: 2.89cm^2 (Vmax). - Mitral valve: Mild regurgitation. - Right ventricle: The cavity size was dilated. Wall thickness was normal. Systolic function was reduced. - Pulmonary arteries: PA peak pressure: 47mm Hg (S). If LV function is below 40, please consider prescribing an ACEI or ARB or document rationale for non-use. PROCEDURE DATA STUDY STATUS: Elective. Procedure: Transthoracic echocardiography. Image quality was good. Scanning was performed from the parasternal, apical, and subcostal acoustic windows. Study completion: The patient tolerated the procedure well. Transthoracic echocardiography. M-mode, complete 2D, complete spectral Doppler, and color Doppler. Height: Height: 72in. Weight: Weight: 147.7lb. Body mass index: BMI: 20.1kg/m^2. Body surface area: BSA: 1.87m^2. Patient status: Inpatient. CARDIAC ANATOMY LEFT VENTRICLE: The cavity size was normal. Wall thickness was normal. Systolic function was normal. The estimated ejection fraction was in the range of 50% to 55%. Wall motion was normal; there were no regional wall motion abnormalities. AORTIC VALVE: Trileaflet; normal thickness leaflets. Doppler: Transvalvular velocity was within the normal range. There was no stenosis. No regurgitation. Valve area: 3.03cm^2(VTI). Indexed valve area: 1.62cm^2/m^2 (VTI). Valve area: 2.89cm^2 (Vmax). Indexed valve area: 1.55cm^2/m^2 (Vmax). Mean gradient: 3mm Hg (S). AORTA: Aortic root: The aortic root was normal in size. MITRAL VALVE: Structurally normal valve. Doppler: Transvalvular velocity was within the normal range. There was no evidence for stenosis. Mild regurgitation. LEFT ATRIUM: The atrium was normal in size. RIGHT VENTRICLE: The cavity size was dilated. Wall thickness was normal. Systolic function was reduced. PULMONIC VALVE: Doppler: Transvalvular velocity was within the normal range. There was no evidence for stenosis. No regurgitation. TRICUSPID VALVE: Structurally normal valve. Doppler: Transvalvular velocity was within the normal range. No regurgitation. PULMONARY ARTERY: The main pulmonary artery was normal-sized. Systolic pressure was within the normal range. RIGHT ATRIUM: The atrium was normal in size. PERICARDIUM: There was no pericardial effusion. SYSTEMIC VEINS: Inferior vena cava: The vessel was dilated; the respirophasic diameter changes were blunted (< 50%); findings are consistent with elevated central venous pressure. Patient weight: 147.7lb _Ejection fraction:_ 65-75% _Fractional shortening:_ 32% up to 5Kg 5-11.5Kg 11.6-22.9Kg 23-45Kg 45-57Kg Aortic Root 7-13 <17 13-22 17-27 17-27 LA diam 6-13 <23 24-38 33-47 37-40 RVID 10-17 7-15 7-15 7-18 8-17 LVIDd 12-22 <32 24-38 33-47 37-40 LVPW 2-4 3-6 5-7 6-8 7-8 IVS 2-4 3-6 5-7 6-8 7-8 BASIC MEASUREMENTS ADULT NORMAL Left ventricle LV internal dimension, ED, chordal *38.9 mm 43-52 level, PLAX LV internal dimension, ES, chordal 29 mm 23-38 level, PLAX Fractional shortening, chordal level, *25 % >29 PLAX LV posterior wall thickness, ED 8.38 mm IVS/LVPW ratio, ED 0.99 <1.3 Ventricular septum Septal thickness, ED 8.26 mm Aortic valve Leaflet separation 24 mm 15-26 Aorta Root diameter, ED 38 mm Left atrium Anterior-posterior dimension 28 mm Anterior-posterior dimension index 1.5 cm/m^2 <2.2 BASIC MEASUREMENTS ADULT NORMAL Aortic valve Leaflet separation 24 mm 15-26 DOPPLER MEASUREMENTS ADULT NORMAL Main pulmonary artery Pressure, S *47 mm Hg =30 Aortic valve Peak velocity, S 112 cm/s Mean velocity, S 80 cm/s VTI, S 18.9 cm Mean gradient, S 3 mm Hg Valve area, VTI 3.03 cm^2 Valve area index, VTI 1.62 cm^2/m^2 Valve area, Vmax 2.89 cm^2 Valve area index, Vmax 1.55 cm^2/m^2 Mitral valve Peak E-wave velocity 48.4 cm/s Peak A-wave velocity 60.7 cm/s Peak E/A ratio 0.8 Tricuspid valve Regurgitant peak velocity 282 cm/s Peak RV-RA gradient, S 32 mm Hg Maximal regurgitant velocity 282 cm/s Systemic veins Estimated CVP 15 mm Hg Right ventricle RV pressure, S *47 mm Hg <30 LEGEND: Mean values are shown as u=mean value. Asterisk (*) gong values outside specified normal range. Amended Amauri Wilkerson [id number]
[2016-12-02] MEDS ORDERED: AZITHROMYCIN 250 MG TAB PO SCH (13:00)
[2016-12-02] MEDS: ACETAMINOPHEN/HYDROcodone 325 MG/5 MG TAB PO PRN (13:12)
--- NOTE | 2016-12-02 13:31 | EKG ---
Date Performed: 12/01/2016 Time Performed: 20:55:08 PTAGE: 61 years EKG: SINUS TACHYCARDIA WITH OCCASIONAL SUPRAVENTRICULAR PREMATURE COMPLEXES MODERATE T-WAVE ABNO RMALITY, CONSIDER ANTERIOR ISCHEMIA ABNORMAL ECG PREVIOUS TRACING : 12/01/2016 15.52 Compared to prior tracing no significant change DOCTOR: Dallas Vargas Interpretating Date/Time 12/02/2016 13:29:31
[2016-12-02] MEDS ORDERED: cefTRIAXone INJ 1,000 MG in SODIUM CHLORIDE 0.9% INJ 100 ML IV SCH (14:00)
--- NOTE | 2016-12-02 15:29 | EKG ---
Date Performed: 12/01/2016 Time Performed: 15:52:27 PTAGE: 61 years EKG: SINUS TACHYCARDIA WITH FREQUENT SUPRAVENTRICULAR PREMATURE COMPLEXES BORDERLINE RIGHT AXIS DEVIATION NONSPECIFIC T-WAVE ABNORMALITY When compared to previous tracing, frequent premature atrial Contractions are now noted, which is suggestive of either Multifocal atrial tachycardia, cliical cor rolation is suggested. ABNORMAL RHYTHM ECG PREVIOUS TRACING : 05/06/2016 05.33 DOCTOR: Dallas Vargas Interpretating Date/Time 12/02/2016 15:28:53
[2016-12-02 18:59] LABS: APTT (PATIENT) 37.2 SEC (24.3-30.1)
--- NOTE | 2016-12-02 19:13 | PD.CONS ---
History of Present Illness Service Hematology Consult Requested By Hospitalist service Reason for Consult Bilateral pulmonary emboli; seemingly unprovoked. Second lifetime episode of pulmonary emboli. Primary Care Physician No Primary Care Physician Diagnoses: (1) Pulmonary emboli History of Present Illness Chief complaint: Progressive difficulty breathing over the past 5 days; with acute worsening 3 hours prior to presentation to the hospital. Difficulty breathing associated with sternal chest pressure. History of present illness: Mr. Daniel is a 61-year-old male who came into the hospital on 12/01/2016 with complaints of difficulty breathing which started this past weekend. He reports initially feeling as if he had a flu with a cough and chest congestion. He also reports having had fatigue and weakness. He tells me on the day of presentation his breathing worsened acutely and he was unable to catch his breath; this was associated with sternal chest pressure. He presented to the emergency department and underwent a CT angiogram of the chest which revealed bilateral pulmonary emboli. He was noted to be tachycardic at the time of presentation was also hypoxic. The patient was assessed to have a submassive/massive pulmonary embolus and was treated with systemic TPA infusion. Upon questioning he reports having had an episode of pulmonary embolus involving the right lung in 2013 or 2014, he reports having had chest pain at that time. He was treated at a hospital in [place] was recommended anticoagulation. He reports being on anticoagulation was relatively over about 3 months, he was seen by a hot knife cutter and recommended outpatient follow-up but was unable to follow-up due to lack of insurance. He denies having had any recent travel, long road trips, protracted period Of immobilization or other provoking factors prior to either of his 2 episodes of pulmonary embolus. Review of Systems Constitutional: COMPLAINS OF: Fatigue, Dizziness, DENIES: Diaphoretic episodes , Fever, Weight gain, Weight loss, Chills, Change in appetite, Night Sweats Endocrine: DENIES: Heat/cold intolerance, Polydipsia, Polyuria, Polyphagia Eyes: DENIES: Blurred vision, Diplopia, Eye inflammation, Eye pain, Vision loss , Photosensitivity, Double Vision Ears, nose, mouth, throat: DENIES: Tinnitus, Hearing loss, Vertigo, Nasal discharge, Oral lesions, Throat pain, Hoarseness, Ear Pain, Running Nose, Epistaxis, Sinus Pain, Toothache, Odynophagia Respiratory: COMPLAINS OF: Cough, Shortness of breath, DENIES: Apneas, Snoring , Wheezing, Hemoptysis, Sputum production Cardiovascular: COMPLAINS OF: Chest pain, Palpitations, Dyspnea on Exertion, DENIES: Syncope, PND, Lower Extremity Edema, Orthopnea, Claudication Gastrointestinal: DENIES: Abdominal pain, Black stools, Bloody stools, Constipation, Diarrhea, Nausea, Vomiting, Difficulty Swallowing, Anorexia Genitourinary: DENIES: Sexual dysfunction, Urinary frequency, Urinary incontinence, Urgency, Hematuria, Dysuria, Nocturia, Penile Discharge, Testicular Pain, Testicular Swelling Musculoskeletal: DENIES: Joint pain, Muscle aches, Stiffness, Joint Swelling, Back pain, Neck pain Integumentary: DENIES: Abnormal pigmentation, Nail changes, Pruritus, Rash Hematologic/lymphatic: DENIES: Bruising, Lymphadenopathy Immunologic/allergic: DENIES: Eczema Neurologic: DENIES: Abnormal gait, Headache, Localized weakness, Paresthesias, Seizures, Speech Problems, Tremor, Poor Balance Psychiatric: COMPLAINS OF: Anxiety, DENIES: Confusion, Mood changes, Depression, Hallucinations, Agitation, Suicidal Ideation, Homicidal Ideation, Delusions Except as stated in HPI: all other systems reviewed are Neg Past Family Social History Allergies: Coded Allergies: No Known Allergies (Unverified , 12/01/16) Past Medical History Personal history of pulmonary embolism; 2013. Second lifetime episode of pulmonary embolism; November 2016. Past Surgical History Denies any invasive surgical procedures. Active Ordered Medications Current inpatient medications: Heparin infusion per protocol Zosyn 3.375 g IV every 6 hours Vancomycin per pharmacy dosing Hydrocodone/acetaminophen 5/325 mg by mouth every 6 hours as needed for pain Albuterol/ipratropium nebulizers every 6 hours as needed for wheezing Guaifenesin DM 200/20 mg per 10 mL's; 10 mL by mouth every 4 hours new for cough Venlafaxine 150 mg by mouth daily Temazepam 15 mg by mouth daily at bedtime as needed for insomnia Seroquel 100 mg by mouth daily at bedtime Motel prednisolone 40 mg IV every 12 hours Zofran 4 mg IV every 6 hours as needed for nausea and vomiting Pantoprazole 40 MG by mouth daily Family History Parents are both living. Mother is healthy Father has history of strokes, coronary artery disease and has implantable defibrillator. All 4 grandparents of metastatic lung carcinoma; there were also smokers. Social History The patient is , he has 3 children all girls. 2 are adults the youngest one is 5 years old. The patient is originally from [facility], he subsequently lived and worked in [facility]. 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 He is now unemployed and lives at home with his parents. 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 He reports smoking about a pack a day for most of the past 40 years; for the past 5 years he smoked about half a pack a day. Per medical records she has a history of alcohol abuse. He tells me he has never abused illicit drugs. Physical Exam Vital Signs Vital Signs Date Time Temp Pulse Resp B/P Pulse Ox O2 Delivery O2 Flow Rate FiO2 12/02/16 18:00 84 12/02/16 16:00 98.6 78 18 104/67 92 12/02/16 16:00 78 12/02/16 14:29 14 12/02/16 14:00 82 12/02/16 12:00 76 12/02/16 12:00 97.8 76 16 104/62 98 12/02/16 10:00 69 12/02/16 09:56 99 Nasal Cannula 2.00 12/02/16 08:00 74 12/02/16 08:00 98.9 74 18 100/66 96 12/02/16 07:00 96 Nasal Cannula 4.00 12/02/16 06:30 94 Nasal Cannula 4.00 12/02/16 06:00 96 12/02/16 04:00 98.5 76 20 114/63 92 96/65 12/02/16 04:00 76 12/02/16 02:00 77 12/02/16 00:30 95 12/02/16 00:30 91 Nasal Cannula 4.00 12/02/16 00:30 98.3 98 19 114/63 91 12/01/16 21:20 97.8 97 20 101/62 91 12/01/16 20:26 102 20 101/65 98 Nasal Cannula 4 12/01/16 20:15 94 Nasal Cannula 2.00 12/01/16 19:59 102 20 108/69 95 Nasal Cannula 4.00 Physical Exam GENERAL: He lays male, laying in bed, no acute distress. SKIN: No rashes, ecchymoses or lesions. Cool and dry. Ulcerative lesion along the right side of the bridge of the nose. HEAD: Atraumatic. Normocephalic. No temporal or scalp tenderness. EYES: Pupils equal round and reactive. Extraocular motions intact. No scleral icterus. No injection or drainage. ENT: Nose without bleeding, purulent drainage or septal hematoma. Throat without erythema, tonsillar hypertrophy or exudate. Uvula midline. Airway patent. NECK: Trachea midline. No JVD or lymphadenopathy. Supple, nontender, no meningeal signs. CARDIOVASCULAR: Regular rate and rhythm without murmurs, gallops, or rubs. RESPIRATORY: Good air movement bilaterally, prolonged expiratory phase, decreased bibasilar breath sounds. Scattered rhonchi and Kreps. GASTROINTESTINAL: Abdomen soft, non-tender, nondistended. No hepato-splenomegaly , or palpable masses. No guarding. MUSCULOSKELETAL: Extremities without clubbing, cyanosis, or edema. No joint tenderness, effusion, or edema noted. No calf tenderness. Negative Homans sign bilaterally. NEUROLOGICAL: Awake and alert. Cranial nerves II through XII intact. Motor and sensory grossly within normal limits. Five out of 5 muscle strength in all muscle groups. Normal speech. Lower tremor is: No pretibial edema no calf tenderness. Laboratory Laboratory Tests Test 12/01/16 12/01/16 12/02/16 12/02/16 20:16 23:58 00:29 00:35 Troponin I 0.06 Prothrombin Time 11.0 Prothromb Time International 1.0 Ratio Activated Partial 35.0 Thromboplast Time Lactic Acid Level 4.0 Urine Color YELLOW Urine Turbidity CLEAR Urine pH 6.0 Urine Specific [place] 1.043 Urine Protein 100 Urine Glucose (UA) 1000 Urine Ketones 10 Urine Occult Blood SMALL Urine Nitrite NEG Urine Bilirubin NEG Urine Urobilinogen LESS THAN 2.0 Urine Leukocyte Esterase NEG Urine RBC 2 Urine WBC 3 Urine Mucus FEW Microscopic Urinalysis Comment CULT NOT INDICATED Nasal Screen MRSA (PCR) NEGATIVE Test 12/02/16 12/02/16 12/02/16 12/02/16 02:32 05:45 11:12 11:45 Troponin I 0.04 White Blood Count 12.7 Red Blood Count 3.69 Hemoglobin 11.0 Hematocrit 32.8 Mean Corpuscular Volume 89.0 Mean Corpuscular Hemoglobin 29.7 Mean Corpuscular Hemoglobin 33.4 Concent Red Cell Distribution Width 15.2 Platelet Count 317 Mean Platelet Volume 7.5 Neutrophils (%) (Auto) 86.6 Lymphocytes (%) (Auto) 8.1 Monocytes (%) (Auto) 5.0 Eosinophils (%) (Auto) 0.0 Basophils (%) (Auto) 0.3 Neutrophils # (Auto) 10.9 Lymphocytes # (Auto) 1.0 Monocytes # (Auto) 0.6 Eosinophils # (Auto) 0.0 Basophils # (Auto) 0.0 CBC Comment DIFF FINAL Differential Comment Activated Partial 46.7 40.1 Thromboplast Time Sodium Level 138 Potassium Level 3.7 Chloride Level 106 Carbon Dioxide Level 21.5 Anion Gap 11 Blood Urea Nitrogen 18 Creatinine 1.36 Estimat Glomerular Filtration 54 Rate Random Glucose 157 Calcium Level 8.3 Total Bilirubin 0.3 Aspartate Amino Transf 24 (AST/SGOT) Alanine Aminotransferase 41 (ALT/SGPT) Alkaline Phosphatase 85 Total Protein 6.1 Albumin 2.0 Blood Type B NEGATIVE Antibody Screen NEGATIVE Blood Bank Comment Lactate Dehydrogenase 603 Tumor Marker Alpha Fetoprotein 1.4 Carcinoembryonic Antigen 1.5 CA 19-9 Antigen 2.4 CA 125 Antigen 11.9 Prostate Specific Antigen 4.41 Date/Time Procedure Status Source Growth 12/01/16 20:17 Aerobic Blood Culture - Preliminary Resulted Blood Peripheral NO GROWTH IN 1 DAY 12/01/16 20:17 Anaerobic Blood Culture - Final Resulted Blood Peripheral QNS - SEE AEROBE REPORT 12/01/16 15:45 Influenza Types A,B Antigen (LISS) - Final Complete Nasal Washing NEGATIVE FOR FLU A AND B ANTIGEN.... Result Diagram: 12/02/16 0545 12/02/16 0545 Assessment and Plan Assessment and Plan 61-year-old male presents to the hospital with progressive difficulty breathing ; this started 5 days prior to presentation. On the day of presentation he had an acute worsening of his breathing with severe dyspnea with even minimal exertion. He also had accompanying substernal chest pressure. He was noted to be hypoxic and tachycardic upon presentation to the emergency department and underwent CT angiogram the chest which revealed bilateral pulmonary emboli. He was treated with thrombolytic therapy with systemic TPA infusion. He is now on a heparin drip. Upon questioning, he revealed a history of prior pulmonary embolism which was diagnosed in 2013 he was evaluated and treated at the [facility] at that time. I am unable to identify any definite provoking risk factor such as airline travel, long road trip, acute illness, use of testosterone replacement therapy, corticosteroid therapy or an active diagnosis of malignancy. The oncology service is been consulted to evaluate the patient for possible underlying prothrombotic condition. Per the EMR an extensive prothrombotic workup has been ordered; factor V Leiden mutation, prothrombin gene mutation, antiphospholipid antibodies, circulating lupus anticoagulant have all been ordered along with a DEJA-2 mutation analysis. PLAN: 1. Bilateral pulmonary emboli: At presentation he was showing signs of hypoxia and tachycardia, indicating right heart strain and cardiopulmonary distress. I therefore agree with the use of thrombolytic therapy with TPA. He is now on a heparin infusion, he tells me subjectively he feels somewhat better as compared to when he came in. Specifically, his sternal chest pain has resolved. I would recommend continuation of therapeutic anticoagulation. Over the next 24 hours he may be transitioned from heparin to Lovenox at a therapeutic dose of 1 mg/kg subcutaneous twice daily. Should he remain stable on this, he may be discharged home on therapeutic dose eliquis or xarelto. I anticipate it will take at least a week for us to obtain the results of the prothrombotic workup which has been ordered. Also, once his acute episode has resolved I will add on protein C and protein S levels as well as a factor VIII level. It is best not to order these in the acute setting of a venous thrombi embolism as these factors can often be artificially consumed in the case of protein C and protein S and mimic a deficiency state. In the case of factor VIII, these levels in an acute illness setting may be elevated as this is an acute phase reactant in addition to a clotting factor. I will order ultrasound Doppler studies of bilateral lower extremities to rule out deep venous thrombosis. Problem Qualifiers (1) Pulmonary emboli: Qualified Code: I26.02 - Acute saddle pulmonary embolism with acute cor pulmonale Yong Noble MD Dec 02, 2016 19:13
[2016-12-02] MEDS: HEPARIN-D5W INJ 250 ML IV SCH (19:41)
[2016-12-02] MEDS: QUEtiapine FUMARATE 100 MG TAB PO SCH (19:42)
--- NOTE | 2016-12-02 21:22 | RADRPT ---
EXAM DATE/TIME: 12/02/2016 20:13 [facility] COMPARISON: No previous studies available for comparison. INDICATIONS : Extensive pulmonary embolism. MEDICAL HISTORY : Chronic obstructive pulmonary disease. Skin cancer. Pulmonary embolism. CVA. Diabetes. Seizure. Jennifer st pain. Palpitations. Tuberculosis. Dyspnea. Back pain. Anxiety. Cdiff. Anticoagulant therapy, Hepar in. SURGICAL HISTORY : None. ENCOUNTER: Initial ACUITY: 1 day PAIN SCORE: 0/10 LOCATION: Bilateral leg. TECHNIQUE: Venous ultrasound of the left and right leg was performed from the inguinal ligament to the proximal calf. Real-time, color Doppler and spectral tracing, compression and augmentation techniques were us ed. FINDINGS: RIGHT LEG: There is normal compressibility of the deep venous system from the inguinal region to the proximal ca lf. No echogenic clot is seen in the lumen of the common femoral, femoral, popliteal, and posterior tibial veins. There is a normal response of the venous system to proximal and distal augmentation an d respiration. LEFT LEG: There is normal compressibility of the deep venous system from the inguinal region to the proximal ca lf. No echogenic clot is seen in the lumen of the common femoral, femoral, popliteal, and posterior tibial veins. There is a normal response of the venous system to proximal and distal augmentation an d respiration. CONCLUSION: No evidence of deep venous thrombosis within the lower extremities. Philip Edgar MD on December 02, 2016 at 21:20 Board Certified Radiologist. This report was verified electronically.
[2016-12-03] VITALS (15 sets, daily range): BP systolic 86–114; BP diastolic 53–73; PULSE 58–82; RESP 12–18; TEMP 97.8–98.8; O2SAT 91–98
[2016-12-03] MEDS: VANCOMYCIN INJ 1,350 MG in SODIUM CHLORID 0.9% 500 ML INJ 500 ML IV SCH (00:17)
[2016-12-03] MEDS: PIPERACIL-TAZO 3.375 GM PREMIX 50 ML IV SCH ×4 (01:55→21:32)
[2016-12-03] MEDS: RESP: ALBUTEROL 2.5 MG/IPRATROPIUM 0.5 MG NEB (SCH) INH ×4 (03:12→22:37)
[2016-12-03] MEDS: PANTOPRAZOLE SOD 40 MG DELAYED RELEASE TAB PO SCH (08:06)
[2016-12-03] MEDS: methylPREDNISolone SOD SUCC 40 MG/1 ML VIAL IV SCH ×2 (08:06→21:32)
[2016-12-03] MEDS: VENLAFAXINE HCL XR 75 MG CAP PO SCH (08:06)
[2016-12-03] MEDS: SODIUM CHLORIDE 0.9% FLUSH 10 ML FLUSH IV FLUSH SCH ×2 (08:07→21:00)
[2016-12-03] MEDS: ACETAMINOPHEN/HYDROcodone 325 MG/5 MG TAB PO PRN ×2 (08:15→14:33)
--- NOTE | 2016-12-03 08:16 | HHI.FPPN ---
Subjective Remarks He doing well today. Denies headaches, change in vision, blood in stool or urine , abdominal pain or chest pain. BP controlled. Breathing is improved. (Dong Torres MD R2) Objective Vitals Vital Signs Date Time Temp Pulse Resp B/P Pulse Ox O2 Delivery O2 Flow Rate FiO2 12/03/16 06:00 61 12/03/16 04:00 69 12/03/16 04:00 98.5 69 12 98/57 91 12/03/16 02:00 72 12/03/16 00:00 70 12/03/16 00:00 98.8 70 16 86/53 92 12/02/16 22:00 79 12/02/16 20:09 93 Nasal Cannula 2.00 12/02/16 20:00 67 12/02/16 20:00 98.7 72 27 102/67 92 12/02/16 19:00 92 Nasal Cannula 2.00 12/02/16 18:00 84 12/02/16 16:00 98.6 78 18 104/67 92 12/02/16 16:00 78 12/02/16 14:29 14 12/02/16 14:00 82 12/02/16 12:00 76 12/02/16 12:00 97.8 76 16 104/62 98 12/02/16 10:00 69 12/02/16 09:56 99 Nasal Cannula 2.00 I/O 12/02/16 12/02/16 12/02/16 12/03/16 12/03/16 12/03/16 07:00 15:00 23:00 07:00 15:00 23:00 Intake Total 1963 ml 679 ml 502 ml 1045 ml Output Total 450 ml 450 ml 350 ml 550 ml Balance 1513 ml 229 ml 152 ml 495 ml Intake Oral 420 ml 360 ml 420 ml 240 ml IV Total 1543 ml 319 ml 82 ml 805 ml Output Urine Total 450 ml 450 ml 350 ml 550 ml (Dong Torres MD R2) Result Diagram: 12/02/16 0545 12/03/16 0315 Imaging Last Impressions Lower Extremity Ultrasound 12/02/16 0000 Signed Impressions: Service Date/Time: November 20:13 - CONCLUSION: No evidence of deep venous thrombosis within the lower extremities. Philip Edgar MD Head CT 12/02/16 0000 Signed Impressions: Service Date/Time: November 05:30 - CONCLUSION: Normal examination. Martinez Gotti MD Chest X-Ray 12/01/16 1534 Signed Impressions: Service Date/Time: Thursday, December 01, 2016 15:51 - CONCLUSION: 1. Hyperinflation. 2. Minimal patchy air space disease in the left mid lung. Angel Gomez MD FACR CT Angiography 12/01/16 0000 Signed Impressions: Service Date/Time: Thursday, December 01, 2016 20:53 - CONCLUSION: 1. Extensive pulmonary emboli are noted bilaterally involving all branches of the pulmonary arteries. There are saddle emboli bilaterally within the distal main pulmonary arteries. 2. Moderate emphysematous changes bilaterally. 3. Patchy consolidations are noted within the left upper lobe laterally and the right lower lobe posteriorly consistent with atelectasis, infiltrate, scarring or small pulmonary infarcts. Philip Edgar MD Objective Remarks GENERAL: Lying in bed, Breathing comfortably. NAD SKIN: No rashes, ecchymoses or lesions. Cool and dry. HEAD: Atraumatic. NECK: Trachea midline. No JVD or lymphadenopathy. CARDIOVASCULAR: Regular rate and rhythm without murmurs, gallops, or rubs.Faint heart Sounds. RESPIRATORY: Crackles at right lung base, scattered exp. wheezes throughout, good aeration. GASTROINTESTINAL: Abdomen soft, non-tender, nondistended. MUSCULOSKELETAL: No lower extremity swelling or edema, negative Homans sign NEUROLOGICAL: Awake and alert. Procedures 12/02/16: TPA infused per critical care Heparin drip started (Dong Torres MD R2) A/P Assessment and Plan Mr. Daniel is a 61 y/o occasion male with a past medical history of pulmonary embolism in 2014, anxiety/depression, presenting to the [place] emergency department with acute onset shortness of breath. (HR 112, WBC 15,000, and RR 24 ); meeting sepsis criteria. He was admitted initially with the diagnosis of acute exacerbation of chronic obstructive pulmonary disease, versus a community- acquired pneumonia. Found to have sub-massive PE. (Dong Torres MD R2) Attending Attestation Pt. examined and case discussed with resident physicians I have read the above note and agree with the assessment/plan as discussed with me I was involved in all medical decision making for this patient Mahesh Johnson MD (Mahesh Johnson MD) Problem List: (1) Pulmonary emboli Status: Acute Plan: CTA performed on 12/02/16 shows large bilateral pulmonary emboli and saddle pulmonary emboli - Stat 2-D echocardiogram performed that showed severe RV dysfunction - TPA/alteplase infused per critical care - Heparin drip started will transition to Lovenox 1 mg/kg BID then novel agent on d/c Monitor cardiopulmonary status Observe on critical care floor Supportive treatment as below: Solu-Medrol 40 mg IV every 12 hours Duo nebs every 6 hours as needed Robitussin as needed for cough Hyper coag workup has been ordered and obtained Type and cross 2 units packed red blood cells, transfuse as needed Concerned could be for occult malignancy - Blood tumor markers ordered including CEA, CA-19-9, CEA 125, Prostate ag high 4.41 -- may be secondary to cath placement. - Consider GI workup once patient more stable including colonoscopy or EGD (2) Pneumonia Status: Acute Plan: CXR showed: hyperinflation, Minimal patchy airspace disease in left lung. Antibiotic treatment as below: - Vancomycin 1 g IV every 24 hours (12/02 ->) - Zosyn 3.375 g IV every 6 hours (12/02 ->) - Continue Solu-Medrol 40 mg IV every 12 hours Antibiotic history includes: Rocephin 1 g IV 1 (12/01) Azithromycin 500 mg IV 1 (12/01) Supportive treatment: - Duonebs q 4 hours - Duonebs q 2 hr prn SOB - Incentive spirometry, COPD education - Supplemental oxygen as needed Blood cultures 2 drawn and pending (3) Chest pain Status: Acute Plan: Multifactorial with bilateral PE and pneumonia 2-D echocardiogram performed showing severe RV dysfunction Troponins were cycled with initial 0.07, subsequent 0.06 and 0.04 - Likely due to cardiac strain from large bilateral PEs Treatment for PE as above (4) COPD exacerbation Status: Acute Plan: Some wheezing on exam, heavy Tob history of 1/2 - 1 ppd since age 19. See treatment for pneumonia Recommend tobacco cessation (5) Major depressive disorder, recurrent, severe with psychotic features Status: Acute Plan: Continue home meds - Effexor 75 mg daily and seroquel 100 mg at bedtime. (6) Alcohol use disorder Status: Acute Plan: [facility] protocol IV rally pack (thiamine/B1, mv) (7) FEN Status: Acute Plan: Fluids: 125 ml/hr ns HOLD Electrolytes: Sodium low of 135, Ca+ 8.4 DVT: Lovenox [address] Johnson (Dong Torres MD R2) Problem Qualifiers (1) Pulmonary emboli: Qualified Code: I26.02 - Acute saddle pulmonary embolism with acute cor pulmonale (2) Pneumonia: Qualified Code: J18.1 - Pneumonia of left lower lobe due to infectious organism Dong Torres MD R2 Dec 03, 2016 08:16 Mahesh Johnson MD Dec 03, 2016 18:18
[2016-12-03 10:43] LABS: APTT (PATIENT) 35.6 SEC (24.3-30.1)
[2016-12-03] MEDS: HEPARIN-D5W INJ 250 ML IV SCH (14:35)
[2016-12-03] MEDS: SODIUM CHLOR 0.9% 1000 ML INJ 1,000 ML IV SCH (15:45)
--- NOTE | 2016-12-03 17:06 | HHI.CCPN ---
Subjective Remarks/Hospital Course 12/02: 61-year-old male with past history of COPD and emphysema, and history of what appears to be in unprovoked PE in 2013. He states that about 2 weeks ago he began feeling short of breath but he became much worse about 4 days ago. He also developed some right sided pleuritic chest pain about 4-5 days ago. He denies fever or hemoptysis. He was tachycardic 110s and hypoxic requiring 4 L NC. He was admitted to family medicine service. CTPA was obtained and demonstrated bilateral pulmonary emboli including emboli in the distal bilateral main pulmonary arteries. Medical care medicine consult was obtained due to concern patient may be a candidate for fibrinolytic therapy. He does have troponin of 0.07 and BNP of 175. Blood pressure has been relatively stable with a major of 96/65. He states his cough is occasionally productive of white phlegm. He states he has a prior history of PE that was diagnosed 2 years ago. He was treated for this at [facility]. It is unclear if he underwent hypercoagulable workup as he says he did not follow-up with anyone after he was discharged from the hospital due to lack of insurance. He states he was on anticoagulation for about 2 months and when the prescriptions ran out that he was provided in the hospital that he stopped anticoagulation. He is unclear what anticoagulant medication he was on. He denies prior known history of malignancy, however he does not seek medical care due to his lack of insurance. Has not had colonoscopy. He denies recent travel. Denies family history of venous thromboembolic disease. Denies recent trauma, surgery, extremity fractures. He denies history of significant bleeding, denies GI bleeding, denies prior history of intracerebral hemorrhage or known intracerebral/spinal mass lesion or vascular anomaly, prior surgery, prior stroke, LP/epidural. Obtained stat Echo and discussed with Dr. Chino Marie who states there is severe RV dysfunction. Discussed risk/benefits of thrombolytic for submassive PE and patient accepts risks. 12/03: Status post thrombolysis yesterday. On heparin drip. Remains on nasal cannula. Appears to be breathing better. Objective Vital Signs Date Time Temp Pulse Resp B/P Pulse Ox O2 Delivery O2 Flow Rate FiO2 12/03/16 16:00 82 12/03/16 15:58 98 Nasal Cannula 4.00 12/03/16 12:00 97.9 16 108/71 Intake and Output 12/02/16 12/02/16 12/03/16 08:00 16:00 00:00 Intake Total 1458 ml 679 ml 502 ml Output Total 450 ml 350 ml Balance 1458 ml 229 ml 152 ml Result Diagram: 12/02/16 0545 12/03/16 0315 Other Results Microbiology Date/Time Procedure Status Source Growth 12/01/16 15:45 Influenza Types A,B Antigen (LISS) - Final Complete Nasal Washing NEGATIVE FOR FLU A AND B ANTIGEN.... Imaging Last Impressions Lower Extremity Ultrasound 12/02/16 0000 Signed Impressions: Service Date/Time: November 20:13 - CONCLUSION: No evidence of deep venous thrombosis within the lower extremities. Philip Edgar MD Head CT 12/02/16 0000 Signed Impressions: Service Date/Time: November 05:30 - CONCLUSION: Normal examination. Martinez Gotti MD Chest X-Ray 12/01/16 1534 Signed Impressions: Service Date/Time: Thursday, December 01, 2016 15:51 - CONCLUSION: 1. Hyperinflation. 2. Minimal patchy air space disease in the left mid lung. Angel Gomez MD FACR CT Angiography 12/01/16 0000 Signed Impressions: Service Date/Time: Thursday, December 01, 2016 20:53 - CONCLUSION: 1. Extensive pulmonary emboli are noted bilaterally involving all branches of the pulmonary arteries. There are saddle emboli bilaterally within the distal main pulmonary arteries. 2. Moderate emphysematous changes bilaterally. 3. Patchy consolidations are noted within the left upper lobe laterally and the right lower lobe posteriorly consistent with atelectasis, infiltrate, scarring or small pulmonary infarcts. Philip Edgar MD Objective Remarks GENERAL: Well-nourished, well-developed patient who is sitting up in ISC bed. SKIN: Warm and dry, well perfused. Pearly Skin lesion on right nose, non- pigmented HEAD: Atraumatic. Normocephalic. EYES: Pupils equal and round 2 mm reactive. No scleral icterus. No injection or drainage. ENT: No nasal bleeding or discharge. Mucous membranes pink and moist. NECK: Trachea midline. No JVD CARDIOVASCULAR: Regular rate and rhythm, sinus rhythm on monitor with rate in the 70s to 90s. No murmurs rubs or gallops. RESPIRATORY: Good air entry bilaterally. No wheezes Rales or rhonchi is currently. GASTROINTESTINAL: Abdomen soft, non-tender, nondistended. Bowel sounds present MUSCULOSKELETAL: Extremities without clubbing, cyanosis, or edema. No obvious deformities. NEUROLOGICAL: Awake and alert. No obvious cranial nerve deficits. Motor grossly within normal limits. Five out of 5 muscle strength in the arms and legs. Normal speech. A/P Assessment and Plan NEURO: Anxiety Panic attacks Continue Effexor 150 mg by mouth daily Continue Seroquel 100 mg by mouth daily at bedtime Lortab as needed for pain CT brain, negative. RESP: Submassive bilateral pulmonary emboli COPD/emphysema Patient has bilateral central pulmonary emboli, elevated troponin, elevated BNP and stat 2-D echo demonstrating severe RV dysfunction per Dr. Blackwell' discussion with Dr. Chino Marie overnight (formal dictation pending). Received alteplase 10 mg IV and 40 mg IV over 2 hours. Solumedrol 40 mg IV every 12 hours per primary team. Duoneb q6 hours and prn. Robitussin. CV: Lactic acidemia KVO IVF. GI: Regular diet FEN/RENAL: Acute kidney injury Insert Romero prior to TPA. Monitor intake and output. Monitor electrolytes and replace as indicated. ID: Community acquired pneumonia On Zosyn 3.375 g IV every 6 hours per primary team due to community-acquired pneumonia with severe structural lung disease. HEME: Hypercoagulable workup sent. Hemonc consulted. On heparin gtt for anticoagulation. Type and Cross 2 units PRBC. ENDO: Mild hyperglycemia. Insulin sliding scale if needed PROPH: On heparin drip. Protonix 40 mg po daily for stress ulcer prophylaxis. ACCESS: 3 peripheral IVs. FULL CODE Critical care signing off, please reconsult if needed. Gume Bloom MD Dec 03, 2016 17:06
[2016-12-03 17:41] LABS: APTT (PATIENT) 40.4 SEC (24.3-30.1)
[2016-12-03] MEDS: QUEtiapine FUMARATE 100 MG TAB PO SCH (21:31)
[2016-12-04] VITALS (13 sets, daily range): BP systolic 97–143; BP diastolic 65–87; PULSE 58–84; RESP 14–18; TEMP 97.9–99.5; O2SAT 92–98
[2016-12-04 01:03] LABS: APTT (PATIENT) 39.2 SEC (24.3-30.1)
[2016-12-04] MEDS: SODIUM CHLOR 0.9% 1000 ML INJ 1,000 ML IV SCH ×3 (01:06→17:38)
[2016-12-04] MEDS: VANCOMYCIN INJ 1,350 MG in SODIUM CHLORID 0.9% 500 ML INJ 500 ML IV SCH (01:06)
[2016-12-04] MEDS: PIPERACIL-TAZO 3.375 GM PREMIX 50 ML IV SCH ×2 (03:11→08:29)
[2016-12-04] MEDS: HEPARIN-D5W INJ 250 ML IV SCH (03:13)
[2016-12-04] MEDS: RESP: ALBUTEROL 2.5 MG/IPRATROPIUM 0.5 MG NEB (SCH) INH ×4 (04:21→21:05)
[2016-12-04 04:24] LABS: AUTOMATED NEUTROPHIL # 9.3 TH/MM3 (1.8-7.7); BASOPHIL % 0.3 % (0.0-2.0); EOSINOPHIL # 0.1 TH/MM3 (0-0.4); EOSINOPHIL % 0.5 % (0.0-4.0); HEMATOCRIT 28.2 % (39.0-51.0); HEMO FLAGS DIFF FINAL; LYMPH % 26.7 % (9.0-44.0); LYMPHOCYTE # 3.7 TH/MM3 (1.0-4.8); MEAN CELL VOLUME 89.6 FL (80.0-100.0); MEAN CORPUSCULAR HEMOGLOBIN 30.1 PG (27.0-34.0); MEAN CORPUSCULAR HGB CONC 33.6 % (32.0-36.0); MONO % 4.9 % (0.0-8.0); NEUT % 67.6 % (16.0-70.0); PLATELET COUNT 378 TH/MM3 (150-450); RED BLOOD COUNT 3.14 MIL/MM3 (4.50-5.90); RED CELL DISTRIBUTION WIDTH 15.6 % (11.6-17.2); WHITE BLOOD COUNT 13.8 TH/MM3 (4.0-11.0)
[2016-12-04 04:38] LABS: ALT (GPT) 29 U/L (12-78); ANION GAP 8 MEQ/L (5-15); AST (GOT) 12 U/L (15-37); BICARBONATE 23.6 MEQ/L (21.0-32.0); BLOOD UREA NITROGEN 20 MG/DL (7-18); CHLORIDE 111 MEQ/L (98-107); GLOMERULAR FILTRATION RATE 59 ML/MIN (>89); POTASSIUM 3.4 MEQ/L (3.5-5.1); SODIUM (NA) 143 MEQ/L (136-145)
[2016-12-04 04:41] LABS: ALKALINE PHOSPHATASE 63 U/L (45-117); TOTAL BILIRUBIN ADULT 0.1 MG/DL (0.2-1.0)
[2016-12-04] MEDS: ACETAMINOPHEN/HYDROcodone 325 MG/5 MG TAB PO PRN ×2 (06:25→17:39)
[2016-12-04] MEDS: methylPREDNISolone SOD SUCC 40 MG/1 ML VIAL IV SCH (08:29)
[2016-12-04] MEDS: SODIUM CHLORIDE 0.9% FLUSH 10 ML FLUSH IV FLUSH SCH ×2 (08:29→20:53)
[2016-12-04] MEDS: VENLAFAXINE HCL XR 75 MG CAP PO SCH (08:29)
[2016-12-04] MEDS: PANTOPRAZOLE SOD 40 MG DELAYED RELEASE TAB PO SCH (08:29)
--- NOTE | 2016-12-04 09:39 | HHI.FPPN ---
Subjective Remarks Patient was seen and examined this morning. He feels well this morning. His breathing is improved and he denies chest pain, shortness of breath, nausea, vomiting, headache, bleeding. He states he would like to get his Romero removed so he can move around. He is currently still on heparin drip. (Vivienne Vargas MD R1) Objective Vitals Vital Signs Date Time Temp Pulse Resp B/P Pulse Ox O2 Delivery O2 Flow Rate FiO2 12/04/16 08:00 98.7 67 14 111/73 93 12/04/16 08:00 67 12/04/16 07:00 94 Nasal Cannula 2.00 12/04/16 06:00 84 12/04/16 04:00 66 12/04/16 04:00 97.9 66 18 123/79 92 12/04/16 02:00 58 12/04/16 00:00 76 12/04/16 00:00 98.0 76 16 97/65 93 12/03/16 22:35 96 Nasal Cannula 2.00 12/03/16 22:00 65 12/03/16 20:00 67 12/03/16 20:00 98.7 67 14 111/73 93 12/03/16 19:00 96 Nasal Cannula 2.00 12/03/16 18:00 64 12/03/16 16:00 98.8 82 18 107/70 92 12/03/16 16:00 82 12/03/16 15:58 98 Nasal Cannula 4.00 12/03/16 14:00 66 12/03/16 12:00 64 12/03/16 12:00 97.9 64 16 108/71 93 12/03/16 10:22 98 Nasal Cannula 2.00 12/03/16 10:00 82 I/O 12/03/16 12/03/16 12/03/16 12/04/16 12/04/16 12/04/16 07:00 15:00 23:00 07:00 15:00 23:00 Intake Total 1045 ml 580 ml 1199 ml 1784 ml Output Total 550 ml 250 ml 400 ml 725 ml Balance 495 ml 330 ml 799 ml 1059 ml Intake Oral 240 ml 320 ml 400 ml 200 ml IV Total 805 ml 260 ml 799 ml 1584 ml Output Urine Total 550 ml 250 ml 400 ml 725 ml # Bowel Movements 0 (Vivienne Vargas MD R1) Result Diagram: 12/04/16 0355 12/04/16 0355 Imaging Last Impressions Lower Extremity Ultrasound 12/02/16 0000 Signed Impressions: Service Date/Time: November 20:13 - CONCLUSION: No evidence of deep venous thrombosis within the lower extremities. Philip Edgar MD Head CT 12/02/16 0000 Signed Impressions: Service Date/Time: November 05:30 - CONCLUSION: Normal examination. Martinez Gotti MD Chest X-Ray 12/01/16 1534 Signed Impressions: Service Date/Time: Thursday, December 01, 2016 15:51 - CONCLUSION: 1. Hyperinflation. 2. Minimal patchy air space disease in the left mid lung. Angel Gomez MD FACR CT Angiography 12/01/16 0000 Signed Impressions: Service Date/Time: Thursday, December 01, 2016 20:53 - CONCLUSION: 1. Extensive pulmonary emboli are noted bilaterally involving all branches of the pulmonary arteries. There are saddle emboli bilaterally within the distal main pulmonary arteries. 2. Moderate emphysematous changes bilaterally. 3. Patchy consolidations are noted within the left upper lobe laterally and the right lower lobe posteriorly consistent with atelectasis, infiltrate, scarring or small pulmonary infarcts. Philip Edgar MD Objective Remarks GENERAL: Lying in bed, Breathing comfortably. In no apparent distress. SKIN: No rashes, ecchymoses or lesions. Cool and dry. HEAD: Atraumatic. NECK: Trachea midline. No JVD or lymphadenopathy. CARDIOVASCULAR: Regular rate and rhythm without murmurs, gallops, or rubs. Faint heart Sounds. Pulses are 2+ in upper and lower extremities bilaterally. RESPIRATORY: Moderate air movement today. Lung exam is overall improved, notable for mild crackles at right lung base, no wheezes noted. GASTROINTESTINAL: Abdomen soft, non-tender, nondistended. MUSCULOSKELETAL: No lower extremity swelling or edema, negative Homans sign NEUROLOGICAL: Awake and alert. Procedures 12/02/16: TPA infused per critical care Heparin drip started Medications and IVs Inpatient Medications Acetaminophen/ Hydrocodone Bitart ([place] 5-325 Mg) 1 tab Q6H PRN PO PAIN Last administered on 12/04/16t 06:25; Start 12/02/16 at 09:30 Albuterol/ Ipratropium (Duoneb Neb) 1 ampule Q4HR NEB PRN INH SHORTNESS OF BREATH; Start 12/01/16 at 18:00 Albuterol/ Ipratropium 1 ampule 1 ampule Q15M INH Last administered on 15:57; Start 12/01/16 at 15:45; Stop 12/01/16 at 16:16; Status DC Alteplase, Recombinant 50 mg/ Sterile Water 100 ml @ 0 mls/hr ONCE ONCE IV Last administered on 12/02/16 06:45; Start 12/02/16 at 05:15; Stop 12/02/16 at 05:21; Status DC Alteplase, Recombinant/ Sterile Water (Activase Inj/ Sterile Water For Inj) 50 ml @ 0 mls/hr ONCE ONCE IV Last administered on 12/02/16 06:45; Start at 05:30; Stop 12/02/16 at 05:31; Status DC Azithromycin (Zithromax) 500 mg Q24H PO ; Start 12/02/16 at 13:00; Stop at 13:00; Status DC Azithromycin/ Sodium Chloride (Zithromax Inj/ NS 250 ml Inj) 250 ml @ 250 mls/ hr ONCE ONCE IV Last administered on 12/01/16 16:37; Start 12/01/16 at 16:45 ; Stop 12/01/16 at 17:44; Status DC Ceftriaxone Sodium 1000 mg/ Sodium Chloride 100 ml @ 200 mls/hr ONCE ONCE IV Last administered on 12/01/16 16:37; Start 12/01/16 at 16:45; Stop 12/01/16 at 17:14; Status DC Ceftriaxone Sodium/Sodium Chloride (Rocephin Inj/NS Inj) 100 ml @ 200 mls/hr Q24H IV ; Start 12/02/16 at 14:00; Stop 12/02/16 at 14:00; Status DC Enoxaparin Sodium (Lovenox Inj) 75 mg Q12H SQ Last administered on 12/04/16 10: 51; Start 12/04/16 at 11:00 Guaifenesin/ Dextromethorphan 10 ml 10 ml Q4H PRN PO COUGH; Start 12/01/16 at 18:00 Heparin Sodium (Porcine) (Heparin Inj) 5,000 units UNSCH PRN IV APTT LESS THAN 25; Start 12/02/16 at 04:15; Stop 12/02/16 at 05:23; Status DC Heparin Sodium (Porcine) 2500 units 2,500 units UNSCH PRN IV APTT 25 TO 39; Start 12/02/16 at 04:15; Stop 12/02/16 at 05:23; Status DC Heparin Sodium/ Dextrose 250 ml @ 0 mls/hr TITRATE IV Last administered on 03:13; Start 12/02/16 at 13:00; Stop 12/04/16 at 10:00; Status DC Levofloxacin (Levaquin) 750 mg DAILY PO Last administered on 12/04/16 10:00; Start 12/04/16 at 10:00 Methylprednisolone Sodium Succinate (SoluMEDROL INJ) 40 mg Q12HR IV Last administered on 12/04/16 08:29; Start 12/01/16 at 21:00 Naloxone HCl 0.4 mg 0.4 mg UNSCH PRN IV SEE LABEL COMMENTS; Start 12/01/16 at 18:00 Norepinephrine Bitartrate (Levophed-Dextrose Drip) 250 ml @ 0 mls/hr TITRATE IV ; Start 12/02/16 at 00:30; Stop 12/02/16 at 00:30; Status DC Ondansetron HCl (Zofran Inj) 4 mg Q6H PRN IVP NAUSEA OR VOMITING; Start at 18:00 Pantoprazole Sodium 40 mg 40 mg DAILY PO Last administered on 12/04/16 08:29; Start 12/02/16 at 10:00 Pharmacy Profile Note 0 ml @ 0 mls/hr UNSCH OTHER ; Start 12/01/16 at 20:15; Stop 12/04/16 at 10:04; Status DC Piperacillin Sod/ Tazobactam Sod 50 ml @ 100 mls/hr Q6H IV Last administered on 12/04/16 08:29; Start 12/01/16 at 21:00; Stop 12/04/16 at 10:04; Status DC Quetiapine Fumarate (SEROquel) 100 mg HS PO Last administered on 12/03/16 21: 31; Start 12/01/16 at 21:00 Sodium Chloride (NS 1000 ml Inj) 1,000 ml @ 125 mls/hr Q8H IV Last administered on 12/04/16 01:06; Start 12/03/16 at 16:00 Sodium Chloride (NS Flush) 2 ml BID IV FLUSH Last administered on 12/03/16 08: 07; Start 12/01/16 at 21:00 Temazepam (Restoril) 15 mg HS PRN PO INSOMNIA; Start 12/01/16 at 18:00 Terbutaline Sulfate 1 mg 1 mg UNSCH PRN SQ For Extravasation; Start 12/02/16 at 00:30; Stop 12/02/16 at 00:30; Status DC Vancomycin HCl 1350 mg/Sodium Chloride 513.5 ml @ 250 mls/hr Q24H IV Last administered on 12/04/16 01:06; Start 12/03/16 at 01:00; Stop 12/04/16 at 10:04; Status DC Vancomycin HCl/ Sodium Chloride (Vancomycin Inj/ NS 500 ml Inj) 513.5 ml @ 250 mls/hr ONCE ONCE IV Last administered on 12/02/16 00:45; Start 12/01/16 at 22 :00; Stop 12/02/16 at 00:03; Status DC Venlafaxine HCl (Effexor Xr) 150 mg DAILY PO Last administered on 12/04/16 08: 29; Start 12/02/16 at 09:00 (Vivienne Vargas MD R1) Urinary Catheter: Yes Assessment to: Remove Date of Insertion: Dec 02, 2016 Date of Removal: Dec 04, 2016 (Vivienne Vargas MD R1) Vascular Central Line Catheter: No (Vivienne Vargas MD R1) A/P Assessment and Plan Mr. Daniel is a 61 y/o occasion male with a past medical history of pulmonary embolism in 2013, anxiety/depression, presenting to the [facility] emergency department with acute onset shortness of breath. (HR 112, WBC 15,000, and RR 24 ); meeting sepsis criteria. He was admitted initially with the diagnosis of acute exacerbation of chronic obstructive pulmonary disease, versus a community- acquired pneumonia. Found to have sub-massive PE. Discharge Planning Possibly discharge to home in 1-2 days, still requires inpatient monitoring due to need for anticoagulation. Patient to be transferred to [facility] floor today. ( Vivienne Vargas MD R1) Attending Attestation Pt. examined and case discussed with resident physician I have read the above note and agree with the assessment/plan as discussed with me I was involved in all medical decision making for this patient Mahesh Johnson MD (Mahesh Johnson MD) Problem List: (1) Pulmonary emboli Status: Acute Plan: Discontinue heparin drip today Start therapy to Lovenox at 1 mg/kilogram every 12 hours Discontinue Romero [facility] We'll need to transition to outpatient therapy, per hematology recommendations, likely a novel anticoagulant Hospital course: CTA performed on 12/02/16 shows large bilateral pulmonary emboli and saddle pulmonary emboli - Stat 2-D echocardiogram performed that showed severe RV dysfunction - TPA/alteplase infused per critical care - Heparin drip started will transition to Lovenox 1 mg/kg BID then novel agent on d/c Monitor cardiopulmonary status: Observed on critical care floor initially, transition to regular floor 12/04 Supportive treatment as below: Solu-Medrol 40 mg IV every 12 hours Duo nebs every 6 hours as needed Robitussin as needed for cough Hyper coag workup has been ordered and obtained Type and cross 2 units packed red blood cells, transfuse as needed Concerned could be for occult malignancy - Blood tumor markers ordered including CEA, CA-19-9, CEA 125, Prostate ag high 4.41 -- may be secondary to cath placement. - Consider GI workup once patient more stable including colonoscopy or EGD (2) Pneumonia Status: Acute Plan: Vanc and Zosyn discontinued 12/04. Start Levaquin at 750 mg by mouth daily , to complete a seven-day course of antibiotics. Hospital course: CXR on admission showed: hyperinflation, Minimal patchy airspace disease in left lung. Antibiotic course as below: - Rocephin 1 g IV 1 (12/01) - Azithromycin 500 mg IV 1 (12/01) - Vancomycin IV every 24 hours (12/02 - 12/04) - Zosyn 3.375 g IV every 6 hours (12/02 - 12/04) - Levaquin 750 mg PO daily (12/04- ) Solu-Medrol 40 mg IV every 12 hours transitioned to by mouth on 12/04 Supportive treatment: - Duonebs scheduled every 6 hours and when necessary - Incentive spirometry, COPD education - Supplemental oxygen as needed Blood cultures 2 showing no growth (3) Chest pain Status: Acute Plan: Multifactorial with bilateral PE and pneumonia, improved. 2-D echocardiogram performed showing severe RV dysfunction Troponins were cycled with initial 0.07, subsequent 0.06 and 0.04 - Likely due to cardiac strain from large bilateral PEs Treatment for PE as above (4) COPD exacerbation Status: Acute Plan: Some wheezing on exam, heavy tobacco history of 1/2 - 1 ppd since age 19. See treatment for pneumonia Recommend tobacco cessation Outpatient follow-up, may require daily controller inhalers (5) Major depressive disorder, recurrent, severe with psychotic features Status: Acute Plan: Continue home meds - Effexor 75 mg daily and seroquel 100 mg at bedtime. (6) Alcohol use disorder Status: Acute Plan: No evidence of withdrawal Counseled on cessation (7) FEN Status: Acute Plan: Fluids: tolerating PO/NS @ 125ml/hr Electrolytes: monitor and replete as needed Nutrition: Regular DVT Prophylaxis: Therapeutic Lovenox, status post heparin and TPA GI Prophylaxis: Not indicated PT ordered 12/04 to improve mobility and strength dw Dr. Johnson (Vivienne Vargas MD R1) Problem Qualifiers (1) Pulmonary emboli: Qualified Code: I26.02 - Acute saddle pulmonary embolism with acute cor pulmonale (2) Pneumonia: Qualified Code: J18.1 - Pneumonia of left lower lobe due to infectious organism Vivienne Vargas MD R1 Dec 04, 2016 09:39 Mahesh Johnson MD Dec 04, 2016 13:22
[2016-12-04] MEDS: LEVOFLOXACIN 750 MG TAB PO SCH (10:00)
--- NOTE | 2016-12-04 10:20 | PD.ONC.PN ---
Subjective Subjective Remarks Afebrile overnight. patient resting comfortably. wants to have his [place] removed and be able to get out of bed. No obvious bleeding. Breathing improved. no chest pain. Objective Data Date Time Temp Pulse Resp B/P Pulse Ox O2 Delivery O2 Flow Rate FiO2 12/04/16 08:00 98.7 67 14 111/73 93 12/04/16 08:00 67 12/04/16 07:00 94 Nasal Cannula 2.00 12/04/16 06:00 84 12/04/16 04:00 66 12/04/16 04:00 97.9 66 18 123/79 92 12/04/16 02:00 58 12/04/16 00:00 76 12/04/16 00:00 98.0 76 16 97/65 93 12/03/16 22:35 96 Nasal Cannula 2.00 12/03/16 22:00 65 12/03/16 20:00 67 12/03/16 20:00 98.7 67 14 111/73 93 12/03/16 19:00 96 Nasal Cannula 2.00 12/03/16 18:00 64 12/03/16 16:00 98.8 82 18 107/70 92 12/03/16 16:00 82 12/03/16 15:58 98 Nasal Cannula 4.00 12/03/16 14:00 66 12/03/16 12:00 64 12/03/16 12:00 97.9 64 16 108/71 93 12/03/16 10:22 98 Nasal Cannula 2.00 12/04/16 12/04/16 12/04/16 07:00 15:00 23:00 Intake Total 1784 ml Output Total 725 ml Balance 1059 ml Result Diagram: 12/04/16 0355 12/04/16 0355 Laboratory Results Laboratory Tests Test 12/03/16 12/04/16 12/04/16 12/04/16 17:16 00:07 03:55 07:10 Activated Partial 40.4 SEC 39.2 SEC 52.0 SEC Thromboplast Time White Blood Count 13.8 TH/MM3 Red Blood Count 3.14 MIL/MM3 Hemoglobin 9.5 GM/DL Hematocrit 28.2 % Mean Corpuscular Volume 89.6 FL Mean Corpuscular Hemoglobin 30.1 PG Mean Corpuscular Hemoglobin 33.6 % Concent Red Cell Distribution Width 15.6 % Platelet Count 378 TH/MM3 Mean Platelet Volume 7.3 FL Neutrophils (%) (Auto) 67.6 % Lymphocytes (%) (Auto) 26.7 % Monocytes (%) (Auto) 4.9 % Eosinophils (%) (Auto) 0.5 % Basophils (%) (Auto) 0.3 % Neutrophils # (Auto) 9.3 TH/MM3 Lymphocytes # (Auto) 3.7 TH/MM3 Monocytes # (Auto) 0.7 TH/MM3 Eosinophils # (Auto) 0.1 TH/MM3 Basophils # (Auto) 0.0 TH/MM3 CBC Comment DIFF FINAL Differential Comment Sodium Level 143 MEQ/L Potassium Level 3.4 MEQ/L Chloride Level 111 MEQ/L Carbon Dioxide Level 23.6 MEQ/L Anion Gap 8 MEQ/L Blood Urea Nitrogen 20 MG/DL Creatinine 1.26 MG/DL Estimat Glomerular Filtration 59 ML/MIN Rate Random Glucose 93 MG/DL Calcium Level 8.6 MG/DL Total Bilirubin 0.1 MG/DL Aspartate Amino Transf 12 U/L (AST/SGOT) Alanine Aminotransferase 29 U/L (ALT/SGPT) Alkaline Phosphatase 63 U/L Total Protein 5.2 GM/DL Albumin 1.9 GM/DL Culture Results Microbiology Date/Time Procedure Status Source Growth 12/01/16 15:45 Influenza Types A,B Antigen (LISS) - Final Complete Nasal Washing NEGATIVE FOR FLU A AND B ANTIGEN.... 12/01/16 17:44 Aerobic Blood Culture - Preliminary Resulted Blood Peripheral NO GROWTH IN 2 DAYS 12/01/16 17:44 Anaerobic Blood Culture - Preliminary Resulted Blood Peripheral NO GROWTH IN 2 DAYS 12/01/16 17:46 Aerobic Blood Culture - Preliminary Resulted Blood Peripheral NO GROWTH IN 2 DAYS 12/01/16 17:46 Anaerobic Blood Culture - Preliminary Resulted Blood Peripheral NO GROWTH IN 2 DAYS 12/01/16 20:10 Aerobic Blood Culture - Preliminary Resulted Blood Peripheral NO GROWTH IN 2 DAYS 12/01/16 20:10 Anaerobic Blood Culture - Final Resulted Blood Peripheral QNS - SEE AEROBE REPORT 12/01/16 20:17 Aerobic Blood Culture - Preliminary Resulted Blood Peripheral NO GROWTH IN 2 DAYS 12/01/16 20:17 Anaerobic Blood Culture - Final Resulted Blood Peripheral QNS - SEE AEROBE REPORT Administered Medications Medications (Trade) Dose Ordered Sig/Selam Route PRN Reason Start Time Stop Time Status Last Admin Dose Admin Quetiapine Fumarate (SEROquel) 100 mg HS PO 12/01/16 21:00 12/03/16 21:31 Venlafaxine HCl (Effexor Xr) 150 mg DAILY PO 12/02/16 09:00 12/04/16 08:29 Sodium Chloride (NS Flush) 2 ml BID IV FLUSH 12/01/16 21:00 12/03/16 08:07 Methylprednisolone Sodium Succinate (SoluMEDROL INJ) 40 mg Q12HR IV 12/01/16 21:00 12/04/16 08:29 Acetaminophen/ Hydrocodone Bitart ([place] 5-325 Mg) 1 tab Q6H PRN PO PAIN 12/02/16 09:30 12/04/16 06:25 Pantoprazole Sodium 40 mg 40 mg DAILY PO 12/02/16 10:00 12/04/16 08:29 Sodium Chloride (NS 1000 ml Inj) 1,000 ml @ 125 mls/hr Q8H IV 12/03/16 16:00 12/04/16 01:06 Objective Remarks GENERAL: Pleasant male, lying in bed in nad. SKIN: Warm and dry. HEAD: Normocephalic. EYES: No injection or drainage. NECK: Supple, trachea midline. CARDIOVASCULAR: Regular rate and rhythm RESPIRATORY: Breath sounds equal bilaterally. No accessory muscle use. GASTROINTESTINAL: Abdomen soft, non-tender, nondistended. EXTREMITIES: No cyanosis MUSCULOSKELETAL: Adequate muscle tone. NEUROLOGICAL: No obvious focal deficit. Awake, alert, and oriented x3. Assessment/Plan Assessment 61y/o male admitted with massive pulmonary embolism, now s/p tpa infusion on heparin drip. Plan 1. patient started on Lovenox BID today 2. monitor hgb while on Lovenox--there was a drop from 11 to 9.5. This is likely due to dilution. There is no obvious bleeding, but I will obtain an occult blood of the stool. Attending Statement The exam, history, and the medical decision-making described in the above note were completed with the assistance of the mid-level provider. I reviewed and agree with the findings presented. I attest that I had a [id number] encounter with the patient on the same day, and personally performed and documented my assessment and findings in the medical record. No CP/SOB/ bleeding. Started on lovenox. Can transition to oral anticoagulant in a few days. Rain Hdez Dec 04, 2016 10:20 Tristin Hanna MD Dec 04, 2016 12:36
[2016-12-04] MEDS: ENOXAPARIN SODIUM 80 MG/0.8 ML SYRINGE SQ SCH ×2 (10:51→23:41)
[2016-12-04] MEDS: predniSONE 20 MG TAB PO SCH ×2 (13:18→20:49)
[2016-12-04] MEDS: QUEtiapine FUMARATE 100 MG TAB PO SCH (20:49)
[2016-12-05] VITALS (8 sets, daily range): BP systolic 110–149; BP diastolic 58–89; PULSE 60–78; RESP 12–21; TEMP 97.6–98.5; O2SAT 90–97
[2016-12-05] MEDS ORDERED: PHARMACY ORDERED LAB ONE (00:45)
[2016-12-05] MEDS: RESP: ALBUTEROL 2.5 MG/IPRATROPIUM 0.5 MG NEB (SCH) INH ×3 (04:46→16:53)
[2016-12-05 07:59] LABS: AUTOMATED NEUTROPHIL # 9.4 TH/MM3 (1.8-7.7); BASOPHIL % 0.2 % (0.0-2.0); HEMATOCRIT 30.3 % (39.0-51.0); LYMPH % 13.6 % (9.0-44.0); LYMPHOCYTE # 1.6 TH/MM3 (1.0-4.8); MEAN CELL VOLUME 88.5 FL (80.0-100.0); MEAN CORPUSCULAR HEMOGLOBIN 29.6 PG (27.0-34.0); MEAN CORPUSCULAR HGB CONC 33.4 % (32.0-36.0); MONO % 5.8 % (0.0-8.0); NEUT % 80.4 % (16.0-70.0); PLATELET COUNT 435 TH/MM3 (150-450); RED BLOOD COUNT 3.42 MIL/MM3 (4.50-5.90); RED CELL DISTRIBUTION WIDTH 15.5 % (11.6-17.2); WHITE BLOOD COUNT 11.7 TH/MM3 (4.0-11.0)
[2016-12-05 08:11] LABS: HEMO FLAGS AUTO DIFF
[2016-12-05 08:29] LABS: ALKALINE PHOSPHATASE 74 U/L (45-117); ALT (GPT) 24 U/L (12-78); ANION GAP 8 MEQ/L (5-15); AST (GOT) 11 U/L (15-37); BICARBONATE 25.9 MEQ/L (21.0-32.0); BLOOD UREA NITROGEN 19 MG/DL (7-18); CHLORIDE 106 MEQ/L (98-107); GLOMERULAR FILTRATION RATE 57 ML/MIN (>89); POTASSIUM 3.7 MEQ/L (3.5-5.1); SODIUM (NA) 140 MEQ/L (136-145); TOTAL BILIRUBIN ADULT 0.2 MG/DL (0.2-1.0)
[2016-12-05] MEDS: LEVOFLOXACIN 750 MG TAB PO SCH (08:47)
[2016-12-05] MEDS: predniSONE 20 MG TAB PO SCH ×2 (08:47→20:56)
[2016-12-05] MEDS: VENLAFAXINE HCL XR 75 MG CAP PO SCH (08:48)
[2016-12-05] MEDS: PANTOPRAZOLE SOD 40 MG DELAYED RELEASE TAB PO SCH (08:48)
[2016-12-05] MEDS: SODIUM CHLORIDE 0.9% FLUSH 10 ML FLUSH IV FLUSH SCH ×2 (08:48→20:57)
[2016-12-05 09:25] LABS: BANDS 4 % (0-6); NEUTROPHIL # MANUAL DIFF 9.4 TH/MM3 (1.8-7.7); POLYS (SEG NEUTROPHILS) 76 % (16-70); WBC DIFF SAMPLE 100
[2016-12-05 09:26] LABS: PLATELET ESTIMATE SMEAR NORMAL (NORMAL); PLATELET MORPHOLOGY NORMAL (NORMAL); SCAN/DIFF FINAL DIFF MANUAL
--- NOTE | 2016-12-05 10:09 | HHI.FPPN ---
Subjective Remarks Patient was seen and examined this morning. He was transferred to a regular floor yesterday. Already Lovenox without any new bleeding. He denies any new symptoms, noting that it is still difficult for him to walk to and from the bathroom without shortness of breath but this has overall improved even in the last day. He denies any fevers, chills, chest pain. He has no shortness of breath at baseline is on room air. He had a bowel movement yesterday that was loose but this was after eating a heavy yesterday. He has not had any diarrhea since. (Vivienne Vargas MD R1) Objective Vitals Vital Signs Date Time Temp Pulse Resp B/P Pulse Ox O2 Delivery O2 Flow Rate FiO2 12/05/16 09:48 94 Nasal Cannula 2.00 12/05/16 08:00 97.6 60 12 111/ 93 12/05/16 05:23 97.8 78 18 110/58 97 12/05/16 04:48 90 21 12/05/16 01:59 98.5 65 21 113/68 97 12/04/16 21:57 98.7 70 18 116/74 98 12/04/16 20:45 Room Air 12/04/16 20:00 84 12/04/16 18:48 18 12/04/16 17:40 92 21 12/04/16 16:30 97.9 64 18 143/87 92 12/04/16 14:00 67 12/04/16 12:00 99.5 62 16 119/68 94 12/04/16 12:00 62 12/04/16 11:10 93 21 12/04/16 10:00 71 I/O 12/04/16 12/04/16 12/04/16 12/05/16 12/05/16 12/05/16 07:00 15:00 23:00 07:00 15:00 23:00 Intake Total 1784 ml 982 ml 610 ml 720 ml Output Total 725 ml 250 ml Balance 1059 ml 732 ml 610 ml 720 ml Intake Oral 200 ml 620 ml 260 ml 120 ml IV Total 1584 ml 362 ml 350 ml 600 ml Output Urine Total 725 ml 250 ml # Voids 2 1 1 # Bowel Movements 0 1 1 0 (Vivienne Vargas MD R1) Result Diagram: 12/05/16 0638 12/05/16 0638 Imaging Last Impressions Lower Extremity Ultrasound 12/02/16 0000 Signed Impressions: Service Date/Time: November 20:13 - CONCLUSION: No evidence of deep venous thrombosis within the lower extremities. Philip Edgar MD Head CT 12/02/16 0000 Signed Impressions: Service Date/Time: November 05:30 - CONCLUSION: Normal examination. Martinez Gotti MD Chest X-Ray 12/01/16 1534 Signed Impressions: Service Date/Time: Thursday, December 01, 2016 15:51 - CONCLUSION: 1. Hyperinflation. 2. Minimal patchy air space disease in the left mid lung. Angel Gomez MD FACR CT Angiography 12/01/16 0000 Signed Impressions: Service Date/Time: Thursday, December 01, 2016 20:53 - CONCLUSION: 1. Extensive pulmonary emboli are noted bilaterally involving all branches of the pulmonary arteries. There are saddle emboli bilaterally within the distal main pulmonary arteries. 2. Moderate emphysematous changes bilaterally. 3. Patchy consolidations are noted within the left upper lobe laterally and the right lower lobe posteriorly consistent with atelectasis, infiltrate, scarring or small pulmonary infarcts. Philip Edgar MD Objective Remarks GENERAL: Lying in bed, Breathing comfortably. In no apparent distress. SKIN: No rashes, ecchymoses or lesions. Cool and dry. HEAD: Atraumatic. NECK: Trachea midline. No JVD or lymphadenopathy. CARDIOVASCULAR: Heart sounds are distant. Regular rate and rhythm without murmurs, gallops, or rubs. Pulses are 2+ in upper and lower extremities bilaterally. RESPIRATORY: Moderate air movement today. Lung exam is overall improved, notable for mild crackles at right lung base, no wheezes noted. GASTROINTESTINAL: Abdomen soft, non-tender, nondistended. MUSCULOSKELETAL: No lower extremity swelling or edema, negative Homans sign NEUROLOGICAL: Awake and alert. Procedures 12/02/16: TPA infused per critical care Heparin drip started Medications and IVs Inpatient Medications Acetaminophen/ Hydrocodone Bitart ([place] 5-325 Mg) 1 tab Q6H PRN PO PAIN Last administered on 12/04/16t 17:39; Start 12/02/16 at 09:30 Albuterol/ Ipratropium (Duoneb Neb) 1 ampule Q4HR NEB PRN INH SHORTNESS OF BREATH; Start 12/01/16 at 18:00 Albuterol/ Ipratropium 1 ampule 1 ampule Q15M INH Last administered on 15:57; Start 12/01/16 at 15:45; Stop 12/01/16 at 16:16; Status DC Alteplase, Recombinant 50 mg/ Sterile Water 100 ml @ 0 mls/hr ONCE ONCE IV Last administered on 12/02/16 06:45; Start 12/02/16 at 05:15; Stop 12/02/16 at 05:21; Status DC Alteplase, Recombinant/ Sterile Water (Activase Inj/ Sterile Water For Inj) 50 ml @ 0 mls/hr ONCE ONCE IV Last administered on 12/02/16 06:45; Start at 05:30; Stop 12/02/16 at 05:31; Status DC Azithromycin (Zithromax) 500 mg Q24H PO ; Start 12/02/16 at 13:00; Stop at 13:00; Status DC Azithromycin/ Sodium Chloride (Zithromax Inj/ NS 250 ml Inj) 250 ml @ 250 mls/ hr ONCE ONCE IV Last administered on 12/01/16 16:37; Start 12/01/16 at 16:45 ; Stop 12/01/16 at 17:44; Status DC Ceftriaxone Sodium 1000 mg/ Sodium Chloride 100 ml @ 200 mls/hr ONCE ONCE IV Last administered on 12/01/16 16:37; Start 12/01/16 at 16:45; Stop 12/01/16 at 17:14; Status DC Ceftriaxone Sodium/Sodium Chloride (Rocephin Inj/NS Inj) 100 ml @ 200 mls/hr Q24H IV ; Start 12/02/16 at 14:00; Stop 12/02/16 at 14:00; Status DC Enoxaparin Sodium (Lovenox Inj) 75 mg Q12H SQ Last administered on 12/04/16 23: 41; Start 12/04/16 at 11:00 Guaifenesin/ Dextromethorphan 10 ml 10 ml Q4H PRN PO COUGH; Start 12/01/16 at 18:00 Heparin Sodium (Porcine) (Heparin Inj) 5,000 units UNSCH PRN IV APTT LESS THAN 25; Start 12/02/16 at 04:15; Stop 12/02/16 at 05:23; Status DC Heparin Sodium (Porcine) 2500 units 2,500 units UNSCH PRN IV APTT 25 TO 39; Start 12/02/16 at 04:15; Stop 12/02/16 at 05:23; Status DC Heparin Sodium/ Dextrose 250 ml @ 0 mls/hr TITRATE IV Last administered on 03:13; Start 12/02/16 at 13:00; Stop 12/04/16 at 10:00; Status DC Levofloxacin (Levaquin) 750 mg DAILY PO Last administered on 12/05/16 08:47; Start 12/04/16 at 10:00 Methylprednisolone Sodium Succinate (SoluMEDROL INJ) 40 mg Q12HR IV Last administered on 12/04/16 08:29; Start 12/01/16 at 21:00; Stop 12/04/16 at 12:20; Status DC Naloxone HCl 0.4 mg 0.4 mg UNSCH PRN IV SEE LABEL COMMENTS; Start 12/01/16 at 18:00 Norepinephrine Bitartrate (Levophed-Dextrose Drip) 250 ml @ 0 mls/hr TITRATE IV ; Start 12/02/16 at 00:30; Stop 12/02/16 at 00:30; Status DC Ondansetron HCl (Zofran Inj) 4 mg Q6H PRN IVP NAUSEA OR VOMITING; Start at 18:00 Pantoprazole Sodium 40 mg 40 mg DAILY PO Last administered on 12/05/16 08:48; Start 12/02/16 at 10:00 Pharmacy Profile Note 0 ml @ 0 mls/hr UNSCH OTHER ; Start 12/01/16 at 20:15; Stop 12/04/16 at 10:04; Status DC Piperacillin Sod/ Tazobactam Sod 50 ml @ 100 mls/hr Q6H IV Last administered on 12/04/16 08:29; Start 12/01/16 at 21:00; Stop 12/04/16 at 10:04; Status DC Prednisone (Deltasone) 40 mg BID PO Last administered on 12/05/16 08:47; Start 12/04/16 at 12:34 Quetiapine Fumarate (SEROquel) 100 mg HS PO Last administered on 12/04/16 20:49 ; Start 12/01/16 at 21:00 Sodium Chloride (NS 1000 ml Inj) 1,000 ml @ 125 mls/hr Q8H IV Last administered on 12/04/16 17:38; Start 12/03/16 at 16:00 Sodium Chloride (NS Flush) 2 ml BID IV FLUSH Last administered on 12/05/16 08: 48; Start 12/01/16 at 21:00 Temazepam (Restoril) 15 mg HS PRN PO INSOMNIA; Start 12/01/16 at 18:00 Terbutaline Sulfate 1 mg 1 mg UNSCH PRN SQ For Extravasation; Start 12/02/16 at 00:30; Stop 12/02/16 at 00:30; Status DC Vancomycin HCl 1350 mg/Sodium Chloride 513.5 ml @ 250 mls/hr Q24H IV Last administered on 12/04/16 01:06; Start 12/03/16 at 01:00; Stop 12/04/16 at 10:04; Status DC Vancomycin HCl/ Sodium Chloride (Vancomycin Inj/ NS 500 ml Inj) 513.5 ml @ 250 mls/hr ONCE ONCE IV Last administered on 12/02/16 00:45; Start 12/01/16 at 22 :00; Stop 12/02/16 at 00:03; Status DC Venlafaxine HCl (Effexor Xr) 150 mg DAILY PO Last administered on 12/05/16 08: 48; Start 12/02/16 at 09:00 (Vivienne Vargas MD R1) Urinary Catheter: No Date of Insertion: Dec 02, 2016 Date of Removal: Dec 04, 2016 (Vivienne Vargas MD R1) Vascular Central Line Catheter: No (Vivienne Vargas MD R1) A/P Assessment and Plan Mr. Daniel is a 61 y/o occasion male with a past medical history of pulmonary embolism in 2013, anxiety/depression, presenting to the [facility] emergency department with acute onset shortness of breath. (HR 112, WBC 15,000, and RR 24 ); meeting sepsis criteria. He was admitted initially with the diagnosis of acute exacerbation of chronic obstructive pulmonary disease, versus a community- acquired pneumonia. Found to have sub-massive PE. Discharge Planning Possibly discharge to home in 1-2 days, still short of breath and will require long-term anticoagulation plan and follow-up plans. PT recommends home with no PT (Vivienne Vargas MD R1) Attending Attestation Patient seen and examined, discussed with resident team. I agree with assessment and management as documented and discussed with me. Pt reports he remains winded with minimal exertion, but overall his breathing is improved. He has questions regarding PE and symptoms should it recur. He has questions regarding side effects of anticoagulation. All questions answered to the best of my abilities. Appreciate hematology. (Francesca Cardozo MD) Problem List: (1) Pulmonary emboli Status: Acute Plan: Continue therapeutic Lovenox at 75 mg subcutaneous twice a day, follow hemoglobin recommendations regarding transition to other anticoagulation regimen Hospital course: Discontinued heparin drip 12/04 Start therapy to Lovenox at 1 mg/kilogram every 12 hours on 12/04 Discontinue Romero 12/04 Transfer to [facility] floor 12/04 CTA performed on 12/02/16 shows large bilateral pulmonary emboli and saddle pulmonary emboli - Stat 2-D echocardiogram performed 12/01 that showed severe RV dysfunction - Heparin drip started 12/01, TPAalteplase infused per critical care on 12/02, will transition to Lovenox 1 mg/kg BID then novel agent on d/c Monitor cardiopulmonary status: Observed on critical care floor initially, transition to regular floor 12/04 Hyper coag workup has been ordered and obtained Type and cross 2 units packed red blood cells, transfuse as needed Concerned could be for occult malignancy - Blood tumor markers ordered including CEA, CA-19-9, CEA 125, Prostate ag high 4.41 -- may be secondary to cath placement. - Consider GI workup once patient more stable including colonoscopy or EGD (2) Pneumonia Status: Acute Plan: Vanc and Zosyn discontinued 12/04. Continue Levaquin at 750 mg by mouth daily, to complete a seven-day course of antibiotics. Hospital course: CXR on admission showed: hyperinflation, Minimal patchy airspace disease in left lung. Antibiotic course as below: - Rocephin 1 g IV 1 (12/01) - Azithromycin 500 mg IV 1 (12/01) - Vancomycin IV every 24 hours (12/02 - 12/04) - Zosyn 3.375 g IV every 6 hours (12/02 - 12/04) - Levaquin 750 mg PO daily (12/04- ) tentative end date 12/08 Solu-Medrol 40 mg IV every 12 hours transitioned to by mouth prednisone on 12/04 Supportive treatment: - Duonebs scheduled every 6 hours and when necessary - Incentive spirometry, COPD education - Supplemental oxygen as needed - Robitussin as needed for cough Blood cultures 2 showing no growth (3) Chest pain Status: Resolved Plan: Multifactorial with bilateral PE and pneumonia, improved. 2-D echocardiogram performed showing severe RV dysfunction Troponins were cycled with initial 0.07, subsequent 0.06 and 0.04 - Likely due to cardiac strain from large bilateral PEs Treatment for PE as above (4) COPD exacerbation Status: Acute Plan: Some wheezing on exam, heavy tobacco history of 1/2 - 1 ppd since age 19. See treatment for pneumonia Recommend tobacco cessation Outpatient follow-up, may require daily controller inhalers (5) Major depressive disorder, recurrent, severe with psychotic features Status: Acute Plan: Continue home meds - Effexor 75 mg daily and seroquel 100 mg at bedtime. (6) Alcohol use disorder Status: Acute Plan: No evidence of withdrawal Counseled on cessation (7) FEN Status: Acute Plan: Fluids: tolerating PO (patient selfdiscontinued normal saline 12/04) Electrolytes: monitor and replete as needed Nutrition: Regular DVT Prophylaxis: Therapeutic Lovenox, status post heparin and TPA GI Prophylaxis: Not indicated PT ordered 12/04 to improve mobility and strength dw Dr. Cardozo (Vivienne Vargas MD R1) Problem Qualifiers (1) Pulmonary emboli: Qualified Code: I26.02 - Acute saddle pulmonary embolism with acute cor pulmonale (2) Pneumonia: Qualified Code: J18.1 - Pneumonia of left lower lobe due to infectious organism Vivienne Vargas MD R1 Dec 05, 2016 10:09 Francesca Cardozo MD Dec 05, 2016 20:11
[2016-12-05] MEDS: ENOXAPARIN SODIUM 80 MG/0.8 ML SYRINGE SQ SCH ×2 (11:00→23:20)
[2016-12-05] MEDS: ACETAMINOPHEN/HYDROcodone 325 MG/5 MG TAB PO PRN (19:32)
[2016-12-05] MEDS: QUEtiapine FUMARATE 100 MG TAB PO SCH (20:56)
[2016-12-06] VITALS (9 sets, daily range): BP systolic 131–154; BP diastolic 83–92; PULSE 52–80; RESP 12–18; TEMP 97.3–97.9; O2SAT 92–96
[2016-12-06 08:15] LABS: AUTOMATED NEUTROPHIL # 9.9 TH/MM3 (1.8-7.7); BASOPHIL % 0.2 % (0.0-2.0); EOSINOPHIL % 0.1 % (0.0-4.0); HEMATOCRIT 32.6 % (39.0-51.0); LYMPHOCYTE # 1.9 TH/MM3 (1.0-4.8); MEAN CELL VOLUME 89.7 FL (80.0-100.0); MEAN CORPUSCULAR HEMOGLOBIN 30.2 PG (27.0-34.0); MEAN CORPUSCULAR HGB CONC 33.7 % (32.0-36.0); MONO % 5.7 % (0.0-8.0); PLATELET COUNT 491 TH/MM3 (150-450); RED BLOOD COUNT 3.64 MIL/MM3 (4.50-5.90); RED CELL DISTRIBUTION WIDTH 15.3 % (11.6-17.2); WHITE BLOOD COUNT 12.5 TH/MM3 (4.0-11.0)
[2016-12-06 08:22] LABS: HEMO FLAGS AUTO DIFF
[2016-12-06 08:24] LABS: APTT (PATIENT) 29.3 SEC (24.3-30.1); PROTHROMBIN TIME - PATIENT 11.1 SEC (9.8-11.6)
[2016-12-06] MEDS: VENLAFAXINE HCL XR 75 MG CAP PO SCH (08:34)
[2016-12-06] MEDS: PANTOPRAZOLE SOD 40 MG DELAYED RELEASE TAB PO SCH (08:34)
[2016-12-06] MEDS: LEVOFLOXACIN 750 MG TAB PO SCH (08:34)
[2016-12-06] MEDS: SODIUM CHLORIDE 0.9% FLUSH 10 ML FLUSH IV FLUSH SCH ×2 (08:35→21:05)
[2016-12-06] MEDS: predniSONE 20 MG TAB PO SCH ×2 (08:35→21:00)
[2016-12-06 08:39] LABS: BICARBONATE 27.9 MEQ/L (21.0-32.0); POTASSIUM 4.1 MEQ/L (3.5-5.1)
[2016-12-06] MEDS: ACETAMINOPHEN/HYDROcodone 325 MG/5 MG TAB PO PRN ×3 (08:41→21:04)
[2016-12-06 09:17] LABS: BANDS 6 % (0-6); EOSINOPHILS 1 % (0-4); METAMYELOCYTES 1 % (0-1); MYELOCYTES 1 % (0-0); NEUTROPHIL # MANUAL DIFF 9.1 TH/MM3 (1.8-7.7); POLYS (SEG NEUTROPHILS) 65 % (16-70); WBC DIFF SAMPLE 100
[2016-12-06 09:18] LABS: PLATELET ESTIMATE SMEAR HIGH (NORMAL); PLATELET MORPHOLOGY NORMAL (NORMAL); SCAN/DIFF FINAL DIFF MANUAL
--- NOTE | 2016-12-06 11:23 | PD.ONC.PN ---
Subjective Subjective Remarks Afebrile overnight. patient resting comfortably without complaint. He is about to get up and walk with physical therapy. No obvious bleeding. Tolerating Lovenox shots. Objective Data Date Time Temp Pulse Resp B/P Pulse Ox O2 Delivery O2 Flow Rate FiO2 12/06/16 08:00 97.8 69 12 134/87 94 12/06/16 08:00 Nasal Cannula 2.00 12/06/16 04:00 97.3 80 17 131/87 95 12/06/16 01:36 60 12/06/16 00:00 97.8 80 18 134/83 93 12/05/16 21:00 Room Air 12/05/16 20:00 97.8 70 19 149/89 92 12/05/16 16:00 97.9 71 16 122/74 95 12/05/16 12:00 97.8 76 12 118/68 91 12/06/16 12/06/16 12/06/16 07:00 15:00 23:00 Intake Total 120 ml Balance 120 ml Result Diagram: 12/06/1630 12/06/16 0730 Laboratory Results Laboratory Tests Test 12/06/16 07:30 White Blood Count 12.5 TH/MM3 Red Blood Count 3.64 MIL/MM3 Hemoglobin 11.0 GM/DL Hematocrit 32.6 % Mean Corpuscular Volume 89.7 FL Mean Corpuscular Hemoglobin 30.2 PG Mean Corpuscular Hemoglobin 33.7 % Concent Red Cell Distribution Width 15.3 % Platelet Count 491 TH/MM3 Mean Platelet Volume 7.0 FL Neutrophils (%) (Auto) 79.0 % Lymphocytes (%) (Auto) 15.0 % Monocytes (%) (Auto) 5.7 % Eosinophils (%) (Auto) 0.1 % Basophils (%) (Auto) 0.2 % Neutrophils # (Auto) 9.9 TH/MM3 Lymphocytes # (Auto) 1.9 TH/MM3 Monocytes # (Auto) 0.7 TH/MM3 Eosinophils # (Auto) 0.0 TH/MM3 Basophils # (Auto) 0.0 TH/MM3 CBC Comment AUTO DIFF Differential Total Cells 100 Counted Neutrophils % (Manual) 65 % Band Neutrophils % 6 % Lymphocytes % 17 % Monocytes % 9 % Eosinophils % 1 % Neutrophils # (Manual) 9.1 TH/MM3 Metamyelocytes 1 % Myelocytes 1 % Differential Comment FINAL DIFF MANUAL Platelet Estimate HIGH Platelet Morphology Comment NORMAL Red Cell Morphology Comment NORMAL Prothrombin Time 11.1 SEC Prothromb Time International 1.0 RATIO Ratio Activated Partial 29.3 SEC Thromboplast Time Sodium Level 143 MEQ/L Potassium Level 4.1 MEQ/L Chloride Level 106 MEQ/L Carbon Dioxide Level 27.9 MEQ/L Anion Gap 9 MEQ/L Blood Urea Nitrogen 19 MG/DL Creatinine 1.28 MG/DL Estimat Glomerular Filtration 58 ML/MIN Rate Random Glucose 130 MG/DL Calcium Level 8.9 MG/DL Administered Medications Medications (Trade) Dose Ordered Sig/Selam Route PRN Reason Start Time Stop Time Status Last Admin Dose Admin Quetiapine Fumarate (SEROquel) 100 mg HS PO 12/01/16 21:00 12/05/16 20:56 Venlafaxine HCl (Effexor Xr) 150 mg DAILY PO 12/02/16 09:00 12/06/16 08:34 Sodium Chloride (NS Flush) 2 ml BID IV FLUSH 12/01/16 21:00 12/06/16 08:35 Acetaminophen/ Hydrocodone Bitart ([place] 5-325 Mg) 1 tab Q6H PRN PO PAIN 12/02/16 09:30 12/06/16 08:41 Pantoprazole Sodium (Protonix) 40 mg DAILY PO 12/02/16 10:00 12/06/16 08:34 Enoxaparin Sodium (Lovenox Inj) 75 mg Q12H SQ 12/04/16 11:00 12/06/16 18:00 12/05/16 23:20 Levofloxacin (Levaquin) 750 mg DAILY PO 12/04/16 10:00 12/06/16 08:34 Prednisone (Deltasone) 40 mg BID PO 12/04/16 12:34 12/06/16 08:35 Objective Remarks GENERAL: well appearing male, standing in room, walking around in nad. SKIN: Warm and dry. HEAD: Normocephalic. EYES: No scleral icterus. No injection or drainage. NECK: Supple, trachea midline. CARDIOVASCULAR: Regular rate and rhythm RESPIRATORY: Breath sounds equal bilaterally. No accessory muscle use. GASTROINTESTINAL: Abdomen soft, non-tender, nondistended. EXTREMITIES: No cyanosis NEUROLOGICAL: No obvious focal deficit. Awake, alert, and oriented x3. Assessment/Plan Assessment 61y/o male admitted with massive pulmonary embolism --s/p tpa infusion. Plan 1. He is tolerating the Lovenox. will start on Xarelto 15mg PO BID tonight. He will need to continue the 15mg PO BID dose for 21 days, then transition to 20mg PO daily. 2. the patient has no insurance--I have consulted and personally spoken the case management to ask them to help him get on patient assistance so he can receive xarelto outpatient. I discussed this with the patient as well. 3. fs faxed to new patient referrals 4. monitor CBC, hgb is stable. Rain Hdez Dec 06, 2016 11:23
[2016-12-06] MEDS: ENOXAPARIN SODIUM 80 MG/0.8 ML SYRINGE SQ SCH (12:09)
[2016-12-06] MEDS ORDERED: XARE15TA PO (14:10)
[2016-12-06] MEDS ORDERED: XARE20TA PO (14:10)
--- NOTE | 2016-12-06 15:19 | HHI.FPPN ---
Subjective Remarks Patient seen and examined. DAIJA. VSSAF, however still on 2L O2 via NC. Denies any specific complaints. No shortness of breath, chest pain, nausea, vomiting, or diarrhea. Able to ambulate down the [place] with PT. Per patient O2 sats was 88- 89% on RA at that time. (Adelina Horne MD R3) Objective Vitals Vital Signs Date Time Temp Pulse Resp B/P Pulse Ox O2 Delivery O2 Flow Rate FiO2 12/06/16 08:07 92 Nasal Cannula 2.00 12/06/16 08:00 97.8 69 12 134/87 94 12/06/16 08:00 Nasal Cannula 2.00 12/06/16 04:00 97.3 80 17 131/87 95 12/06/16 01:36 60 12/06/16 00:00 97.8 80 18 134/83 93 12/05/16 21:00 Room Air 12/05/16 20:00 97.8 70 19 149/89 92 12/05/16 16:00 97.9 71 16 122/74 95 I/O 12/05/16 12/05/16 12/05/16 12/06/16 12/06/16 12/06/16 07:00 15:00 23:00 07:00 15:00 23:00 Intake Total 720 ml 320 ml 120 ml Balance 720 ml 320 ml 120 ml Intake Oral 120 ml 320 ml 120 ml IV Total 600 ml # Voids 1 2 2 # Bowel Movements 0 0 (Adelina Horne MD R3) Result Diagram: 12/06/16 0730 12/06/16 0730 Imaging Lower Extremity Ultrasound 12/02/16 0000 Signed Impressions: Service Date/Time: November 20:13 - CONCLUSION: No evidence of deep venous thrombosis within the lower extremities. Phiilp Edgar MD Head CT 12/02/16 0000 Signed Impressions: Service Date/Time: November 05:30 - CONCLUSION: Normal examination. Martinez Gotti MD Chest X-Ray 12/01/16 1534 Signed Impressions: Service Date/Time: Thursday, December 01, 2016 15:51 - CONCLUSION: 1. Hyperinflation. 2. Minimal patchy air space disease in the left mid lung. Angel Gomez MD FACR CT Angiography 12/01/16 0000 Signed Impressions: Service Date/Time: Thursday, December 01, 2016 20:53 - CONCLUSION: 1. Extensive pulmonary emboli are noted bilaterally involving all branches of the pulmonary arteries. There are saddle emboli bilaterally within the distal main pulmonary arteries. 2. Moderate emphysematous changes bilaterally. 3. Patchy consolidations are noted within the left upper lobe laterally and the right lower lobe posteriorly consistent with atelectasis, infiltrate, scarring or small pulmonary infarcts. Philip Edgar MD Objective Remarks GENERAL:Breathing comfortably on 2L. In no apparent distress. SKIN: No rashes, ecchymoses or lesions. Cool and dry. HEAD: Atraumatic. NECK: Trachea midline. No JVD or lymphadenopathy. CARDIOVASCULAR: Heart sounds are distant. Regular rate and rhythm without murmurs, gallops, or rubs. Pulses are 2+ in upper and lower extremities bilaterally. RESPIRATORY: Good aeration. Lung exam is overall improved, no wheezes noted. GASTROINTESTINAL: Abdomen soft, non-tender, nondistended. MUSCULOSKELETAL: No lower extremity swelling or edema, negative Homans sign NEUROLOGICAL: Awake and alert. Procedures 12/02/16: TPA infused (Adelina Horne MD R3) Date of Insertion: Dec 02, 2016 Date of Removal: Dec 04, 2016 (Adelina Horne MD R3) A/P Assessment and Plan Mr. Daniel is a 61 y/o male with a past medical history of pulmonary embolism in 2013, anxiety/depression admitted for acute exacerbation of chronic obstructive pulmonary disease, versus a community-acquired pneumonia and sepsis. Also found to have sub-massive PE s/p TPA. Has been transition to oral anticoagulation Discharge Planning Discharge pending clearance from hematology. Patient to start Xarelto tonight. CM on board for patient assistance (will need lifelong anticoagulation). (Adelina Horne MD R3) Attending Attestation Patient seen, examined and discussed with resident team. I agree with assessment and management as documented and discussed with me. Pt reports he is feeling less SOB. He was able to ambulate down the halls with PT. Anticipate discharge tomorrow on Xarelto. (Francesca Cardozo MD) Problem List: (1) Pulmonary emboli Status: Acute Plan: CTA performed on 12/02/16 shows large bilateral pulmonary emboli and saddle pulmonary emboli. Patient with history of previous PE in 2014. S/P TPA 12/02 and Heparin drip (12/01-12/04). Symptoms improved. However still on 2L via NC. Will obtain O2 walk test. May need temporary supplemental O2 at home. -Currently on Lovenox 75mg BID. Per Hematology, will start Xarelto tonight. CM on board to help patient obtain Xarelto as outpatient -Follow up with Dr. Hanna as outpatient. Hypercoagulable workup pending. -Tumor makers have been ordered to rule out possible malignancy unremarkable thus far, except for mildly elevated PSA, which may be secondary to cath placement. Consider GI workup once patient more stable including colonoscopy or EGD (2) Pneumonia Status: Acute Plan: - Continue Levaquin at 750 mg by mouth daily, to complete a 7-day course of antibiotics, end date 12/08 - Continue Prednisone. Was on Solu-medrol IV (12/01-12/04) - Duonebs scheduled every 6 hours and when necessary - Incentive spirometry, COPD education - Supplemental oxygen as needed - Robitussin as needed for cough - Bcx 12/01 negative Imaging: CXR on admission showed: hyperinflation, Minimal patchy airspace disease in left lung. Antibiotic course as below: - Rocephin 1 g IV 1 (12/01) - Azithromycin 500 mg IV 1 (12/01) - Vancomycin IV every 24 hours (12/02 - 12/04) - Zosyn 3.375 g IV every 6 hours (12/02 - 12/04) (3) COPD exacerbation Status: Acute Plan: Stable. Heavy tobacco history of 1/2 - 1 ppd since age 19. See treatment for pneumonia Recommend tobacco cessation Outpatient follow-up, may require daily controller inhalers (4) Major depressive disorder, recurrent, severe with psychotic features Status: Acute Plan: Continue home meds - Effexor 75 mg daily and seroquel 100 mg at bedtime. (5) Alcohol use disorder Status: Acute Plan: No evidence of withdrawal Counseled on cessation (6) FEN Status: Acute Plan: Fluids: tolerating PO Electrolytes: monitor and replete as needed Nutrition: Regular DVT Prophylaxis: Currently on Lovenox. Will transition to Xarelto GI Prophylaxis: Not indicated PT ordered 12/04 to improve mobility and strength sdw Dr. Cardozo and Dr. Rajan (Adelina Horne MD R3) Problem Qualifiers (1) Pulmonary emboli: Qualified Code: I26.02 - Acute saddle pulmonary embolism with acute cor pulmonale (2) Pneumonia: Qualified Code: J18.1 - Pneumonia of left lower lobe due to infectious organism Adelina Horne MD R3 Dec 06, 2016 15:19 Francesca Cardozo MD Dec 06, 2016 20:02
[2016-12-06] MEDS: QUEtiapine FUMARATE 100 MG TAB PO SCH (21:03)
[2016-12-06] MEDS: RIVAROXABAN 15 MG TAB PO SCH (21:05)
[2016-12-07 00:30] VITALS: BP 113/72; PULSE 68; RESP 20; TEMP 97.6; O2SAT 93
[2016-12-07 04:00] VITALS: BP 145/84; PULSE 56; RESP 18; TEMP 97.5; O2SAT 94
[2016-12-07] MEDS ORDERED: OXYGENTANK NAS.CANULA (06:39)
[2016-12-07 07:13] LABS: AUTOMATED NEUTROPHIL # 11.9 TH/MM3 (1.8-7.7); BASOPHIL % 0.2 % (0.0-2.0); EOSINOPHIL # 0.1 TH/MM3 (0-0.4); EOSINOPHIL % 0.5 % (0.0-4.0); HEMATOCRIT 34.7 % (39.0-51.0); LYMPH % 12.6 % (9.0-44.0); LYMPHOCYTE # 1.8 TH/MM3 (1.0-4.8); MEAN CELL VOLUME 89.1 FL (80.0-100.0); MEAN CORPUSCULAR HEMOGLOBIN 29.3 PG (27.0-34.0); MEAN CORPUSCULAR HGB CONC 32.9 % (32.0-36.0); MONO % 4.4 % (0.0-8.0); NEUT % 82.3 % (16.0-70.0); PLATELET COUNT 498 TH/MM3 (150-450); RED CELL DISTRIBUTION WIDTH 15.1 % (11.6-17.2); WHITE BLOOD COUNT 14.5 TH/MM3 (4.0-11.0)
[2016-12-07 07:22] LABS: HEMO FLAGS AUTO DIFF
[2016-12-07 07:54] VITALS: O2SAT 92
[2016-12-07 08:31] LABS: PLATELET ESTIMATE SMEAR HIGH (NORMAL); PLATELET MORPHOLOGY NORMAL (NORMAL); SCAN/DIFF AUTO DIFF CONFIRMED
[2016-12-07 08:50] VITALS: BP 138/82; PULSE 56; RESP 16; TEMP 97.6; O2SAT 94
[2016-12-07] MEDS: VENLAFAXINE HCL XR 75 MG CAP PO SCH (09:00)
[2016-12-07] MEDS: SODIUM CHLORIDE 0.9% FLUSH 10 ML FLUSH IV FLUSH SCH (09:00)
[2016-12-07] MEDS: PANTOPRAZOLE SOD 40 MG DELAYED RELEASE TAB PO SCH (09:35)
[2016-12-07] MEDS: LEVOFLOXACIN 750 MG TAB PO SCH (09:35)
[2016-12-07] MEDS: RIVAROXABAN 15 MG TAB PO SCH (09:36)
[2016-12-07 11:20] VITALS: BP 123/76; PULSE 81; RESP 16; TEMP 97.5; O2SAT 92
[2016-12-07] MEDS ORDERED: predniSONE 10 MG TAB PO SCH (11:37)
[2016-12-07] MEDS ORDERED: LEVA750T PO (11:46)
--- NOTE | 2016-12-07 11:47 | HHI.DCPOC ---
Discharge Care Plan Diagnosis: (1) Pulmonary emboli Goals to Promote Your Health * To prevent worsening of your condition and complications * To maintain your health at the optimal level Directions to Meet Your Goals Take your medications as prescribed Follow your dietary instruction Follow activity as directed Keep your appointments as scheduled Take your immunizations and boosters as scheduled If your symptoms worsen call your PCP, if no PCP go to Urgent Care Center or Emergency Room Smoking is Dangerous to Your Health. Avoid second hand smoke Call the 24-hour hour crisis hotline for domestic abuse at Xavi Cristina MD R2 Dec 07, 2016 11:47
[2016-12-07 13:54] LABS: BETA2 GLYCOPROTEIN I AB IGA LESS THAN 9.0 SAU (< OR = 20)
--- NOTE | 2016-12-07 15:27 | HHI.FPPN ---
Subjective Remarks No acute events overnight. BP ranging 112 - 154 / 72 - 96. Feeling well today, ready to go home. No CP. Minimal CALVILLO, no SOB at rest. No pain. (Dylan Rajan MD R1) Objective Vitals Vital Signs Date Time Temp Pulse Resp B/P Pulse Ox O2 Delivery O2 Flow Rate FiO2 12/07/16 11:27 91 Room Air 12/07/16 11:20 97.5 81 16 123/76 92 12/07/16 08:50 97.6 56 16 138/82 94 12/07/16 07:54 92 Nasal Cannula 2.00 12/07/16 04:00 97.5 56 18 145/84 94 12/07/16 00:30 97.6 68 20 113/72 93 12/06/16 20:01 62 12/06/16 20:00 97.9 52 18 154/92 92 12/06/16 20:00 Room Air 90 12/06/16 17:15 2.00 12/06/16 16:00 97.5 61 12 146/86 96 I/O 12/06/16 12/06/16 12/06/16 12/07/16 12/07/16 12/07/16 07:00 15:00 23:00 07:00 15:00 23:00 Intake Total 120 ml Balance 120 ml Intake Oral 120 ml # Voids 2 1 # Bowel Movements 1 0 (Dylan Rajan MD R1) Result Diagram: 12/07/16 0549 12/07/16 0549 Imaging Last Impressions Lower Extremity Ultrasound 12/02/16 0000 Signed Impressions: Service Date/Time: November 20:13 - CONCLUSION: No evidence of deep venous thrombosis within the lower extremities. Philip Edgar MD Head CT 12/02/16 0000 Signed Impressions: Service Date/Time: November 05:30 - CONCLUSION: Normal examination. Martinez Gotti MD Chest X-Ray 12/01/16 1534 Signed Impressions: Service Date/Time: Thursday, December 01, 2016 15:51 - CONCLUSION: 1. Hyperinflation. 2. Minimal patchy air space disease in the left mid lung. Angel Gomez MD FACR CT Angiography 12/01/16 0000 Signed Impressions: Service Date/Time: Thursday, December 01, 2016 20:53 - CONCLUSION: 1. Extensive pulmonary emboli are noted bilaterally involving all branches of the pulmonary arteries. There are saddle emboli bilaterally within the distal main pulmonary arteries. 2. Moderate emphysematous changes bilaterally. 3. Patchy consolidations are noted within the left upper lobe laterally and the right lower lobe posteriorly consistent with atelectasis, infiltrate, scarring or small pulmonary infarcts. Philip Edgar MD Objective Remarks GENERAL: Breathing comfortably on 2L. In no apparent distress SKIN: No rashes, ecchymoses or lesions. Cool and dry NECK: Trachea midline. No JVD or lymphadenopathy CARDIOVASCULAR: Heart sounds are distant. Regular rate and rhythm without murmurs, gallops, or rubs. Pulses are 2+ in upper and lower extremities bilaterally. RESPIRATORY: Good aeration. Lung exam is overall improved, no wheezes noted. GASTROINTESTINAL: Abdomen soft, non-tender, nondistended MUSCULOSKELETAL: No lower extremity swelling or edema NEUROLOGICAL: Awake and alert Procedures 12/02/16: TPA infused (Dylan Rajan MD R1) Date of Insertion: Dec 02, 2016 Date of Removal: Dec 04, 2016 (Dylan Rajan MD R1) A/P Assessment and Plan Mr. Daniel is a 61 y/o male with a past medical history of pulmonary embolism in 2013, anxiety/depression admitted for acute exacerbation of chronic obstructive pulmonary disease, versus a community-acquired pneumonia and sepsis. Also found to have sub-massive PE s/p TPA. Has been transition to oral anticoagulation Discharge Planning Home today (Dylan Rajan MD R1) Attending Attestation Patient seen and examined, discussed with resident team. I agree with assessment and management as documented and discussed with me. Pt without complaints. He feels breathing is improving slowly. Anticipate discharge today, after completion of O2 walk test (Francesca Cardozo MD) Problem List: (1) Pulmonary emboli Status: Acute Plan: CTA performed on 12/02/16 shows large bilateral pulmonary emboli and saddle pulmonary emboli. Patient with history of previous PE in 2013. S/P TPA 12/02 and Heparin drip (12/01-12/04). Symptoms improved. Passed O2 walk test - Hematology consulted, appreciate recommendations - Xarelto 15 mg BID x21 days, then 20 PO daily. Likely will need lifelong anticoagulation - Follow up with Dr. Hanna as outpatient. Hypercoagulable workup negative for APLA, prothrombin. DEJA-2 pending. - Tumor makers have been ordered to rule out possible malignancy; negative except for mildly elevated PSA, which may be secondary to cath placement. - Consider GI workup once patient more stable including colonoscopy or EGD (2) Pneumonia Status: Acute Plan: - Continue Levaquin at 750 mg by mouth daily, to complete a 7-day course of antibiotics, end date 12/08 - S/p 5 day course of steroids - Follow up with PCP Antibiotic course as below: - Rocephin 1 g IV 1 (12/01) - Azithromycin 500 mg IV 1 (12/01) - Vancomycin IV every 24 hours (12/02 - 12/04) - Zosyn 3.375 g IV every 6 hours (12/02 - 12/04) (3) COPD exacerbation Status: Acute Plan: Stable. Heavy tobacco history of 1/2 - 1 ppd since age 19. See treatment for pneumonia Recommend tobacco cessation Outpatient follow-up, may require daily controller inhalers (4) Major depressive disorder, recurrent, severe with psychotic features Status: Chronic Plan: Continue home meds - Effexor 75 mg daily and seroquel 100 mg at bedtime. (5) Alcohol use disorder Status: Chronic Plan: No evidence of withdrawal Counseled on cessation (6) FEN Status: Acute Plan: Fluids: tolerating PO Electrolytes: monitor and replete as needed Nutrition: Regular DVT Prophylaxis: Currently on Lovenox. Will transition to Xarelto GI Prophylaxis: Not indicated PT ordered 12/04 to improve mobility and strength sdw Dr. Jonnie Cardozo (Dylan Rajan MD R1) Problem Qualifiers (1) Pulmonary emboli: Qualified Code: I26.02 - Acute saddle pulmonary embolism with acute cor pulmonale (2) Pneumonia: Qualified Code: J18.1 - Pneumonia of left lower lobe due to infectious organism Dylan Rajan MD R1 Dec 07, 2016 15:27 Francesca Cardozo MD Dec 07, 2016 19:37
--- NOTE | 2016-12-28 11:30 | HHI.DS ---
Discharge Summary Admission Date Dec 01, 2016 at 17:39 Discharge Date: Dec 07, 2016 Admitting Diagnosis Bilateral PE (1) Pulmonary emboli Diagnosis: Principal Plan: CTA performed on 12/02/16 shows large bilateral pulmonary emboli and saddle pulmonary emboli. Patient with history of previous PE in 2013. S/P TPA 12/02 and Heparin drip (12/01-12/04). Symptoms improved. Passed O2 walk test - Hematology consulted, appreciate recommendations - Xarelto 15 mg BID x21 days, then 20 PO daily. Likely will need lifelong anticoagulation - Follow up with Dr. Hanna as outpatient. Hypercoagulable workup negative for APLA, prothrombin. DEJA-2 pending. - Tumor makers have been ordered to rule out possible malignancy; negative except for mildly elevated PSA, which may be secondary to cath placement. - Consider GI workup once patient more stable including colonoscopy or EGD (2) Pneumonia Diagnosis: Principal Plan: - Continue Levaquin at 750 mg by mouth daily, to complete a 7-day course of antibiotics, end date 12/08 - S/p 5 day course of steroids - Follow up with PCP Antibiotic course as below: - Rocephin 1 g IV 1 (12/01) - Azithromycin 500 mg IV 1 (12/01) - Vancomycin IV every 24 hours (12/02 - 12/04) - Zosyn 3.375 g IV every 6 hours (12/02 - 12/04) (3) COPD exacerbation Diagnosis: Principal Plan: Stable. Heavy tobacco history of 1/2 - 1 ppd since age 19. See treatment for pneumonia Recommend tobacco cessation Outpatient follow-up, may require daily controller inhalers (4) Major depressive disorder, recurrent, severe with psychotic features Diagnosis: Secondary Plan: Continue home meds - Effexor 75 mg daily and seroquel 100 mg at bedtime. (5) Alcohol use disorder Diagnosis: Secondary Plan: No evidence of withdrawal Counseled on cessation Consultants Hematology - Dr. Noble, Dr. Hanna CCM - Dr. Blackwell Procedures 12/02/16: TPA infused Brief History HPI: "I couldn't catch my breath" HPI: SOB started 1-2 weeks ago and reports being on and off. Today he went to walk his dog, walked a couple of block and then had difficulty catching his breath. He felt like he "could not suck up any oxygen". After 5 minutes of rest his SOB improved. At home he is not doing anything for his symptoms. He reports a hx of COPD. SOB was worse over past 4 days. He denies a new cough. He reports chest pain when he takes a deep breath at the center of his chest. No URI symptoms. ROS: Pain in lower back, flank Right side. "Warm feeling" in his back. PMHx: blood clots Imaging Last Impressions Lower Extremity Ultrasound 12/02/16 0000 Signed Impressions: Service Date/Time: November 20:13 - CONCLUSION: No evidence of deep venous thrombosis within the lower extremities. Philip Edgar MD Head CT 12/02/16 0000 Signed Impressions: Service Date/Time: November 05:30 - CONCLUSION: Normal examination. Martinez Gotti MD Chest X-Ray 12/01/16 1534 Signed Impressions: Service Date/Time: Thursday, December 01, 2016 15:51 - CONCLUSION: 1. Hyperinflation. 2. Minimal patchy air space disease in the left mid lung. Angel Gomez MD FACR CT Angiography 12/01/16 0000 Signed Impressions: Service Date/Time: Thursday, December 01, 2016 20:53 - CONCLUSION: 1. Extensive pulmonary emboli are noted bilaterally involving all branches of the pulmonary arteries. There are saddle emboli bilaterally within the distal main pulmonary arteries. 2. Moderate emphysematous changes bilaterally. 3. Patchy consolidations are noted within the left upper lobe laterally and the right lower lobe posteriorly consistent with atelectasis, infiltrate, scarring or small pulmonary infarcts. Philip Edgar MD PE at Discharge GENERAL: Breathing comfortably on 2L. In no apparent distress SKIN: No rashes, ecchymoses or lesions. Cool and dry NECK: Trachea midline. No JVD or lymphadenopathy CARDIOVASCULAR: Heart sounds are distant. Regular rate and rhythm without murmurs, gallops, or rubs. Pulses are 2+ in upper and lower extremities bilaterally. RESPIRATORY: Good aeration. Lung exam is overall improved, no wheezes noted. GASTROINTESTINAL: Abdomen soft, non-tender, nondistended MUSCULOSKELETAL: No lower extremity swelling or edema NEUROLOGICAL: Awake and alert Hospital Course Admitted for acute onset SOB, found to have large bilateral PE / saddle embolus as well as imaging findings suggestive of pneumonia. He was treated with therapeutic Lovenox for PE and later transitioned to Xarelto per Hematology recommendations. For his pneumonia, he was started on Levaquin to complete a 7 day course. On admission had significant wheezing as well, so he was treated with a COPD exacerbation, completing a short course of oral steroids in addition to the Levaquin. His respiratory status improved and by hospital day 5 was ready for discharge with anticoagulation as noted below. Pt Condition on Discharge: Stable Discharge Disposition: Discharge Home Discharge Instructions DIET: Follow Instructions for: Heart Healthy Diet Activities you can perform: Regular-No Restrictions Follow up Referrals: Hematology - 1 Week with CHEW Physician - 1 Week New Medications: Rivaroxaban (Xarelto) 15 Mg Tab 15 MG PO Q12HR Take one (1) tab every 12 hours for 21 days Blood Clot Prevention #42 Ref 0 TAB Rivaroxaban (Xarelto) 20 Mg Tab 20 MG PO DAILY Begin taking one (1) tab daily after completing 21 days of the 15 mg tabs dosed twice daily Blood Clot Prevention #30 Ref 0 TAB Levofloxacin (Levaquin) 750 Mg Tab 750 MG PO DAILY #1 TAB Continued Medications: Quetiapine (Seroquel) 100 Mg Tab 100 MG PO HS #30 Ref 0 TAB Venlafaxine (Effexor) 75 Mg Tab 150 MG PO DAILY #120 Ref 0 TAB Dylan Rajan MD R1 Dec 28, 2016 11:30
== END 2016-12-07 16:28 | disposition home or self-care (01) | DRG 175 ==
LOC: NEPE 14:37 → NEDA 17:39 → N04B 21:20 → N03B 12-02 00:23 → N04B 12-04 16:18
PROVIDERS: ADMIT Family Medicine; ATTEND Family Medicine
DX: I26.02 Saddle embolus of pulmonary artery with acute cor pulmonale (principal); J18.9 Pneumonia, unspecified organism; N17.9 Acute kidney failure, unspecified; F33.3 Major depressive disorder, recurrent, severe with psychotic symptoms; J44.0 Chronic obstructive pulmonary disease with (acute) lower respiratory infection; J44.1 Chronic obstructive pulmonary disease with (acute) exacerbation; E87.2 Acidosis; I49.3 Ventricular premature depolarization; R73.9 Hyperglycemia, unspecified; G47.00 Insomnia, unspecified; R09.02 Hypoxemia; F41.0 Panic disorder [episodic paroxysmal anxiety]; F17.210 Nicotine dependence, cigarettes, uncomplicated; Z82.3 Family history of stroke; Z82.49 Family history of ischemic heart disease and other diseases of the circulatory system; Z85.828 Personal history of other malignant neoplasm of skin; Z86.711 Personal history of pulmonary embolism; Z86.73 Personal history of transient ischemic attack (TIA), and cerebral infarction without residual deficits
CPT/HCPCS: 70450; 71010; 71275; 80048; 80053; 81001; 81240; 81241; 81270; 82105; 82378; 82550; 82565; 83090; 83605; 83615; 83880; 84153; 84484; 85007; 85025; 85027; 85300; 85379; 85598; 85610; 85613; 85730; 86147; 86301; 86304; 86850; 86900; 86901; 87040; 87641; 87804; 93005; 93306; 93970; 94150; 94620; 94640; 94664; 96365; 96368; 96375; J0456; J0696; J1644; J1650; J2543; J2920; J2930; J2997; J3370; J7030; J7040; J7050; J7512; Q9967

== ENCOUNTER 2017-10-25 15:31 | Emergency (ER) | payer SELFPAY ==
[~2017-10-25] VITALS: Ht 170.2 cm; Wt 72.0 kg
[~2017-10-25 15:31] MED LIST changes: +LEVA750T PO; -QUET100 PO; +SERO100T PO; -VENL-39 PO; +VENL75TA PO; -VITA500T49 PO; +XARE15TA PO; +XARE20TA PO
[2017-10-25 15:41] VITALS: BP 143/98; PULSE 108; RESP 18; TEMP 98.6; O2SAT 97
[2017-10-25 16:06] LABS: AUTOMATED NEUTROPHIL # 3.5 TH/MM3 (1.8-7.7); BASOPHIL # 0.1 TH/MM3 (0-0.2); EOSINOPHIL # 0.2 TH/MM3 (0-0.4); EOSINOPHIL % 3.4 % (0.0-4.0); HEMATOCRIT 40.6 % (39.0-51.0); HEMOGLOBIN 13.9 GM/DL (13.0-17.0); LYMPH % 37.9 % (9.0-44.0); LYMPHOCYTE # 2.7 TH/MM3 (1.0-4.8); MEAN CELL VOLUME 93.9 FL (80.0-100.0); MEAN CORPUSCULAR HGB CONC 34.1 % (32.0-36.0); MEAN PLATELET VOLUME 7.6 FL (7.0-11.0); MONO % 7.6 % (0.0-8.0); MONOCYTE # 0.5 TH/MM3 (0-0.9); NEUT % 50.1 % (16.0-70.0); PLATELET COUNT 262 TH/MM3 (150-450); RED BLOOD COUNT 4.33 MIL/MM3 (4.50-5.90); RED CELL DISTRIBUTION WIDTH 14.4 % (11.6-17.2); WHITE BLOOD COUNT 7.1 TH/MM3 (4.0-11.0)
[2017-10-25 16:16] LABS: INTERNATIONAL NORMALIZED RATIO 0.9 RATIO; PROTHROMBIN TIME - PATIENT 9.6 SEC (9.8-11.6)
[2017-10-25 16:27] LABS: BICARBONATE 22.6 MEQ/L (21.0-32.0); BLOOD UREA NITROGEN 12 MG/DL (7-18); CALCIUM 8.7 MG/DL (8.5-10.1); CHLORIDE 103 MEQ/L (98-107); CREATININE 1.07 MG/DL (0.60-1.30); GLOMERULAR FILTRATION RATE 70 ML/MIN (>89); GLUCOSE,RANDOM 104 MG/DL (74-106); SODIUM (NA) 137 MEQ/L (136-145)
[2017-10-25 16:32] LABS: TROPONIN I LESS THAN 0.02 NG/ML (0.02-0.05)
--- NOTE | 2017-10-25 17:04 | RADRPT ---
EXAM DATE/TIME: 10/25/2017 15:46 [facility] COMPARISON: CHEST SINGLE AP, December 01, 2016, 15:51. INDICATIONS : Short of breath. MEDICAL HISTORY : Chronic obstructive pulmonary disease. SURGICAL HISTORY : None. ENCOUNTER: Initial ACUITY: 1 day PAIN SCORE: 0/10 LOCATION: Bilateral chest FINDINGS: A single view of the chest demonstrates the lungs to be symmetrically aerated without evidence of mas s, infiltrate or effusion. No evidence of pneumothorax. The cardiomediastinal contours are unremark able. Osseous structures are intact. CONCLUSION: The lungs are clear. Simon Garrett MD on October 25, 2017 at 17:02 Board Certified Radiologist. This report was verified electronically.
[2017-10-25 17:52] VITALS: BP 154/94; PULSE 101; RESP 14; O2SAT 96
--- NOTE | 2017-10-25 18:27 | PD ---
HPI Chief Complaint: Chest Pain Time Seen by Provider: 18:00 Travel History International Travel<30 days: No Contact w/Intl Traveler<30days: No Traveled to known affect area: No History of Present Illness HPI 62 y/o male presents with central chest pain and shortness of breath over the past couple weeks that feels similar to his prior blood clots. He states he is no longer on Xarelto. He denies any other concurrent complaints. Quality is hard to catch breath. Severity is progressive. Duration is 2 weeks. He denies prior heart history. PFSH Past Medical History Anxiety: Yes Depression: Yes Heart Rhythm Problems: No Cancer: Yes (skin cancer) Cardiovascular Problems: Yes (Chest Pain) High Cholesterol: No Chest Pain: Yes Congestive Heart Failure: No COPD: Yes Diminished Hearing: No Endocrine: No Genitourinary: No Immune Disorder: No Musculoskeletal: Yes (chronic back pain) Neurologic: No Psychiatric: Yes Reproductive: No Respiratory: Yes Social History Alcohol Use: Yes (OCASSIONALLY) Tobacco Use: Yes (1/2 PPD) Substance Use: No Allergies-Medications (Allergen,Severity, Reaction): Coded Allergies: No Known Allergies (Unverified , 12/16/16) Reported Meds & Prescriptions Reported Meds & Active Scripts Active No Active Prescriptions or Reported Medications Review of Systems Except as stated in HPI: all other systems reviewed are Neg Physical Exam Narrative GENERAL: 62-year-old male in no apparent distress SKIN: Focused skin assessment warm/dry. HEAD: Atraumatic. Normocephalic. EYES: No scleral icterus. No injection or drainage. ENT: No nasal bleeding or discharge. Mucous membranes pink and moist. NECK: Trachea midline. No JVD. CARDIOVASCULAR: Regular rate and rhythm. RESPIRATORY: No accessory muscle use. Clear to auscultation. Breath sounds equal bilaterally. GASTROINTESTINAL: Abdomen soft, non-tender, nondistended. MUSCULOSKELETAL: No obvious deformities. No clubbing. No cyanosis. No edema. NEUROLOGICAL: Awake and alert. No obvious cranial nerve deficits. Motor grossly within normal limits. Normal speech. PSYCHIATRIC: Appropriate mood and affect; insight and judgment normal. Data Data Last Documented VS Vital Signs Date Time Temp Pulse Resp B/P (MAP) Pulse Ox O2 Delivery O2 Flow Rate FiO2 10/25/17 17:52 101 14 154/94 (114) 96 Room Air 10/25/17 15:41 98.6 Orders Orders Electrocardiogram (10/25/17 15:39) Complete Blood Count With Diff (10/25/17 15:39) Basic Metabolic Panel (Bmp) (10/25/17 15:39) Ckmb (Isoenzyme) Profile (10/25/17 15:39) Troponin I (10/25/17 15:39) Chest, Single Ap (10/25/17 15:39) Iv Access Insert/Monitor (10/25/17 15:39) Ecg Monitoring (10/25/17 15:39) Oxygen Administration (10/25/17 15:39) Oximetry (10/25/17 15:39) Coag Profile (10/25/17 15:39) Ct Pulmonary Angiogram (10/25/17 ) Labs Laboratory Tests Test 10/25/17 15:42 White Blood Count 7.1 TH/MM3 Red Blood Count 4.33 MIL/MM3 Hemoglobin 13.9 GM/DL Hematocrit 40.6 % Mean Corpuscular Volume 93.9 FL Mean Corpuscular Hemoglobin 32.0 PG Mean Corpuscular Hemoglobin Concent 34.1 % Red Cell Distribution Width 14.4 % Platelet Count 262 TH/MM3 Mean Platelet Volume 7.6 FL Neutrophils (%) (Auto) 50.1 % Lymphocytes (%) (Auto) 37.9 % Monocytes (%) (Auto) 7.6 % Eosinophils (%) (Auto) 3.4 % Basophils (%) (Auto) 1.0 % Neutrophils # (Auto) 3.5 TH/MM3 Lymphocytes # (Auto) 2.7 TH/MM3 Monocytes # (Auto) 0.5 TH/MM3 Eosinophils # (Auto) 0.2 TH/MM3 Basophils # (Auto) 0.1 TH/MM3 CBC Comment DIFF FINAL Differential Comment Prothrombin Time 9.6 SEC Prothromb Time International Ratio 0.9 RATIO Activated Partial Thromboplast Time 24.3 SEC Blood Urea Nitrogen 12 MG/DL Creatinine 1.07 MG/DL Random Glucose 104 MG/DL Calcium Level 8.7 MG/DL Sodium Level 137 MEQ/L Potassium Level 3.5 MEQ/L Chloride Level 103 MEQ/L Carbon Dioxide Level 22.6 MEQ/L Anion Gap 11 MEQ/L Estimat Glomerular Filtration Rate 70 ML/MIN Total Creatine Kinase 62 U/L Troponin I LESS THAN 0.02 NG/ML MDM Medical Decision Making Medical Screen Exam Complete: Yes Emergency Medical Condition: Yes Medical Record Reviewed: Yes (Here in November 2016 with pulmonary embolus) Interpretation(s) CBC & BMP Diagram 10/25/17 15:42 Calcium Level 8.7 Last 24 hours Impressions Chest X-Ray 10/25/17 1539 Signed Impressions: Service Date/Time: Wednesday, October 25, 2017 15:46 - CONCLUSION: The lungs are clear. Simon Garrett MD Differential Diagnosis COPD, pneumonia, pneumothorax, pulmonary embolus, MD Narrative Course CT chest added to protocol ordered from ambulance hallway and will monitor Physician Communication Physician Communication oncoming physician to follow ct and admit Scripts No Active Prescriptions or Reported Meds Lima Mata MD Oct 25, 2017 18:27
[2017-10-25] MEDS ORDERED: IOHEXOL 350 MG/ML 10 ML VIAL (for RAD DIAG) IVCONTRAST ONE (19:50)
--- NOTE | 2017-10-25 20:17 | RADRPT ---
EXAM DATE/TIME: 10/25/2017 19:44 [facility] COMPARISON: CT PULMONARY ANGIOGRAM, December 01, 2016, 20:53. INDICATIONS : Chest pain and shortness of breath. IV CONTRAST: 75 cc Omnipaque 350 (iohexol) IV RADIATION DOSE: 7.77 CTDIvol (mGy) MEDICAL HISTORY : Cardiovascular disease. Chronic obstructive pulmonary disease. PE. SURGICAL HISTORY : None. ENCOUNTER: Initial ACUITY: 3 weeks PAIN SCALE: 5/10 LOCATION: chest TECHNIQUE: Volumetric scanning of the chest was performed using a pulmonary embolism protocol MIP images were re constructed. Using automated exposure control and adjustment of the mA and/or kV according to patien t size, radiation dose was kept as low as reasonably achievable to obtain optimal diagnostic quality images. DICOM format image data is available electronically for review and comparison. Follow-up recommendations for detected pulmonary nodules are based at a minimum on nodule size and pa tient risk factors according to Fleischner Society Guidelines. FINDINGS: PULMONARY ARTERIES: Several septations noted in the segmental and subsegmental branches of the right lower lobe pulmonary artery branches consistent with sequela of prior pulmonary embolism. No significant focal filling de fect. LUNGS: Severe upper lobe predominant centrilobular and moderate paraseptal emphysema. Stable bibasilar linea r parenchymal opacities consistent with scarring or infarcts given history of prior PE. PLEURAE: There is no pleural thickening or pleural effusion. MEDIASTINUM: There is good visualization of the great vessels of the middle mediastinum. No evidence of mediastin al or hilar adenopathy/mass. MUSCULOSKELETAL: Within normal limits for patient age. MISCELLANEOUS: The visualized upper abdominal organs demonstrate small hiatal hernia. CONCLUSION: 1. Pulmonary septations in the segmental and subsegmental branches of the right lower lobe consistent with sequela of prior pulmonary artery embolism. 2. No evidence for acute pulmonary artery embolism. 3. Severe upper lobe predominant centrilobular and moderate paraseptal emphysema. 4. Stable bibasilar scarring versus pulmonary infarcts. Kennedy Arnold MD on October 25, 2017 at 20:11 Board Certified Radiologist. This report was verified electronically.
[2017-10-25 21:01] VITALS: BP 144/102; PULSE 92; RESP 12; O2SAT 96
[2017-10-25] MEDS ORDERED: RESP: ALBUTEROL 2.5 MG/IPRATROPIUM 0.5 MG NEB (SCH) NEB ONE (21:15)
[2017-10-26] MEDS ORDERED: VENTAER INH (00:37)
[2017-10-26] MEDS ORDERED: MEDR4PAK PO (00:37)
--- NOTE | 2017-10-26 00:37 | PD ---
Physical Exam Narrative Patient signed out to me at shift change with operating diagnosis of chest pain , pending CT pulmonary angiogram secondary to prior history of multiple PEs and presentation with shortness of breath with mild chest discomfort this evening. Patient CT resulted as negative for acute PDA, residual changes secondary to prior PE as noted. Patient limited examination reviewed, negative for acute MT. Troponin less than 0.02. Patient observed in ED, extensive history taken regarding patient's social history, and difficulty maintaining medical regimen. Case management involved. Patient had repeat troponin performed at his 6 hour level, which also resulted at less than 0.02, repeat EKG no changes, normal sinus rhythm at 90 bpm, nonischemic, intervals normal. Patient was given an albuterol Atrovent nebulizer treatment with significant relief of his heaviness and breathing complaints. Medical regimen reviewed, patient was previously prescribed Xarelto but is noncompliant with same secondary to monetary issues. She brought alternatives discussed as well as albuterol inhalers and Medrol Dosepak. Data Data Last Documented VS Vital Signs Date Time Temp Pulse Resp B/P (MAP) Pulse Ox O2 Delivery O2 Flow Rate FiO2 10/25/17 21:02 12 95 Room Air 10/25/17 21:01 92 144/102 (116) 10/25/17 15:41 98.6 Orders Orders Electrocardiogram (10/25/17 15:39) Complete Blood Count With Diff (10/25/17 15:39) Basic Metabolic Panel (Bmp) (10/25/17 15:39) Ckmb (Isoenzyme) Profile (10/25/17 15:39) Troponin I (10/25/17 15:39) Chest, Single Ap (10/25/17 15:39) Iv Access Insert/Monitor (10/25/17 15:39) Ecg Monitoring (10/25/17 15:39) Oxygen Administration (10/25/17 15:39) Oximetry (10/25/17 15:39) Coag Profile (10/25/17 15:39) Ct Pulmonary Angiogram (10/25/17 ) D-Dimer (10/25/17 19:13) Iohexol 350 Inj (Omnipaque 350 Inj) (10/25/17 19:50) Albuterol-Ipratropium Neb (Duoneb Neb) (10/25/17 21:15) Case Management Consult (10/25/17 ) Troponin I (10/25/17 22:37) Electrocardiogram (10/25/17 ) Labs Laboratory Tests Test 10/25/17 15:42 10/25/17 19:40 10/25/17 23:20 White Blood Count 7.1 TH/MM3 Red Blood Count 4.33 MIL/MM3 Hemoglobin 13.9 GM/DL Hematocrit 40.6 % Mean Corpuscular Volume 93.9 FL Mean Corpuscular Hemoglobin 32.0 PG Mean Corpuscular Hemoglobin Concent 34.1 % Red Cell Distribution Width 14.4 % Platelet Count 262 TH/MM3 Mean Platelet Volume 7.6 FL Neutrophils (%) (Auto) 50.1 % Lymphocytes (%) (Auto) 37.9 % Monocytes (%) (Auto) 7.6 % Eosinophils (%) (Auto) 3.4 % Basophils (%) (Auto) 1.0 % Neutrophils # (Auto) 3.5 TH/MM3 Lymphocytes # (Auto) 2.7 TH/MM3 Monocytes # (Auto) 0.5 TH/MM3 Eosinophils # (Auto) 0.2 TH/MM3 Basophils # (Auto) 0.1 TH/MM3 CBC Comment DIFF FINAL Differential Comment Prothrombin Time 9.6 SEC Prothromb Time International Ratio 0.9 RATIO Activated Partial Thromboplast Time 24.3 SEC Blood Urea Nitrogen 12 MG/DL Creatinine 1.07 MG/DL Random Glucose 104 MG/DL Calcium Level 8.7 MG/DL Sodium Level 137 MEQ/L Potassium Level 3.5 MEQ/L Chloride Level 103 MEQ/L Carbon Dioxide Level 22.6 MEQ/L Anion Gap 11 MEQ/L Estimat Glomerular Filtration Rate 70 ML/MIN Total Creatine Kinase 62 U/L Troponin I LESS THAN 0.02 NG/ML LESS THAN 0.02 NG/ML D-Dimer Quantitative (PE/DVT) 1.34 MG/L FEU [facility] Medical Record Reviewed: Yes Supervised Visit with YANELY: Yes Differential Diagnosis Chest pain, atypical chest pain, pulmonary embolus, COPD Narrative Course See narrative. Discharge with medical prescriptions, and follow-up with [facility]. Diagnosis Primary Impression: COPD (chronic obstructive pulmonary disease) Qualified Codes: J44.1 - Chronic obstructive pulmonary disease with (acute) exacerbation Patient Instructions: COPD (Chronic Obstructive Pulmonary Disease) (ED), General Instructions Additional Instruction: Albuterol 2 puffs every for 6 hours as needed for shortness of breath/wheeze. Medrol Dosepak as prescribed. Follow-up with [facility]. Return for worsening Scripts Methylprednisolone Dosepak (Medrol Dosepak) 4 Mg Dspk 4 MG PO DIRECTED, #1 DSPK 0 Refills Per Pharmacist direction Prov: Carlos Gonzalez MD 10/26/17 Albuterol 18 GM Inh (Ventolin Hfa 18 GM Inh) 90 Mcg/Act Aer 2 PUFF INH Q4-6H Y for SHORTNESS OF BREATH, #1 INHALER 0 Refills Prov: Carlos Gonzalez MD 10/26/17 Disposition: 01 DISCHARGE HOME Condition: Stable Carlos Gonzalez MD Oct 26, 2017 00:37
--- NOTE | 2017-10-26 07:55 | EKG ---
Date Performed: 10/25/2017 Time Performed: 23:17:37 PTAGE: 62 years EKG: Sinus rhythm WITH OCCASIONAL SUPRAVENTRICULAR PREMATURE COMPLEXES BORDERLINE ECG NO PREVIOUS TRACING DOCTOR: Asif Pina Interpretating Date/Time 10/26/2017 07:52:17
--- NOTE | 2017-10-26 15:40 | EKG ---
Date Performed: 10/25/2017 Time Performed: 15:54:03 PTAGE: 62 years EKG: Sinus rhythm NORMAL ECG PREVIOUS TRACING : 12/01/2016 20.55 DOCTOR: Asif Pina Interpretating Date/Time 10/26/2017 15:39:22
== END 2017-10-26 00:42 | disposition home or self-care (01) ==
LOC: NEPE 15:31
DX: J44.1 Chronic obstructive pulmonary disease with (acute) exacerbation (principal); F17.200 Nicotine dependence, unspecified, uncomplicated
CPT/HCPCS: 71045; 71275; 80048; 82550; 84484; 85025; 85379; 85610; 85730; 93005; 94664; 99285; Q9967